=== PATIENT | female | born 1960 | race Caucasian/White ===

== ENCOUNTER 2017-02-10 08:18 | Day surgery (SDC) | payer BC ==
--- NOTE | 2017-02-03 10:30 | HP ---
DATE OF ADMISSION: 02/10/2017 CHIEF COMPLAINT: Renal failure. HISTORY OF PRESENT ILLNESS: The patient is a 56-year-old female with a history of diabetes and progressive renal failure. She is at the point where she is going to require dialysis. She has investigated both hemodialysis and peritoneal dialysis and is requesting peritoneal dialysis at this time. The patient has not had a significant abdominal surgery history. No known hernias. PAST MEDICAL HISTORY: Hypertension, diabetes, obesity, gout. PAST SURGICAL HISTORY: , right foot. MEDICATIONS: 1. Rocaltrol. 2. Drisdol. 3. Nifedical. 4. Lasix. 5. Hydralazine. 6. Carvedilol. 7. Insulin. 8. Allopurinol. ALLERGIES: LISINOPRIL, NOVOCAIN, METFORMIN. PHYSICAL EXAMINATION: GENERAL: Well-developed, well-nourished slightly obese female in no distress. HEENT: Normocephalic. Sclerae anicteric. ABDOMEN: Soft, nontender, nondistended. No palpable hernias. IMPRESSION: A 36-year-old female with renal failure. PLAN: Will proceed with peritoneal dialysis catheter insertion on 02/10/2017. We discussed the risks of bleeding, infection, bowel injury, catheter malfunction, and anesthesia-related complications. The patient understands and wishes to proceed.
[~2017-02-10 08:18] MED LIST: HEPARIN SODIUM,PORCINE 5,000 UNIT/ML 1 ML VIAL SQ ONE
[2017-02-10] MEDS ORDERED: SCOPOLAMINE 1.5MG/72HR PATCH TRANSDERM ONE (08:37)
[2017-02-10] MEDS ORDERED: HYDROmorphone 1 MG/ML 1 ML SYRINGE IVP PRN (08:37)
[2017-02-10] MEDS ORDERED: ONDANSETRON 4 MG/2 ML VIAL IVP ONE (08:37)
[2017-02-10] MEDS ORDERED: MIDAZOLAM 2 MG/2 ML VIAL IV PRN (08:37)
[2017-02-10] MEDS ORDERED: DEXAMETHASONE SOD PHOSPHATE 10 MG/ML 1 ML VIAL IV ONE (08:37)
[2017-02-10] MEDS ORDERED: ceFAZolin 2 GM in SODIUM CHLORIDE 0.9% 100 ML IVPB STA (08:50)
[2017-02-10] MEDS: LACTATED RINGERS 1,000 ML IV SCH ×2 (08:58→08:59)
[2017-02-10] MEDS ORDERED: SODIUM CHLORIDE 0.9% 1,000 ML IV ONE (08:59)
[2017-02-10 09:02] LABS: Glucose,Whole Blood 101 mg/dL (75-99)
[2017-02-10 09:06] LABS: Basophils # (A) 0.1 k/uL (0-0.2); Basophils % (A) 1 %; CH 30.3; Eosinophils # (A) 0.6 k/uL (0-0.7); Eosinophils % (A) 7 %; HCT 29.5 % (34.0-46.0); HDW 2.85; HGB 9.3 gm/dL (11.4-16.0); Luc # (Auto) 0.16; Luc % (Auto) 2; Lymphocytes # (A) 0.9 k/uL (1.0-4.8); Lymphocytes % (A) 10 %; MCH 29.2 pg (25.0-35.0); MCHC 31.6 g/dL (31.0-37.0); MCV 92.4 fL (80.0-100.0); Mean Platelet Volume 7.8; Monocytes # (A) 0.5 k/uL (0-1.0); Monocytes % (A) 5 %; Neutrophils # (A) 6.5 k/uL (1.3-7.7); Neutrophils % (A) 75 %; RBC 3.19 m/uL (3.80-5.40); RDW 13.8 % (11.5-15.5); WBC 8.7 k/uL (3.8-10.6); WBC (Perox) 9.35
[2017-02-10 09:16] LABS: Calcium 8.8 mg/dL (8.4-10.2); Potassium 5.9 mmol/L (3.5-5.1)
[2017-02-10] MEDS ORDERED: LIDOCAINE 1% INJ 10MG/ML (20 ML MDV) ONE (09:39)
[2017-02-10] MEDS ORDERED: PROPOFOL 10 MG/ML 20 ML VIAL IV ONE (09:39)
[2017-02-10] MEDS ORDERED: fentaNYL (PF) 50 MCG/ML 2 ML AMP ONE (09:39)
[2017-02-10] MEDS ORDERED: MIDAZOLAM 2 MG/2 ML VIAL ONE (09:39)
[2017-02-10] MEDS ORDERED: MINERAL OIL 1 APPLIC/ML OIL TOPICAL ONE (10:00)
[2017-02-10] MEDS ORDERED: BUPIVACAIN-EPI 0.25%-1:200,000 30 ML VIAL SQ ONE ×2 (10:00)
[2017-02-10] MEDS ORDERED: NALOXONE 0.4 MG/ML 1 ML VIAL IV PRN ×2 (10:20→10:21)
[2017-02-10] MEDS ORDERED: HYDROcodone/APAP 5-325MG 1 EACH TAB PO PRN (10:21)
--- NOTE | 2017-02-10 10:23 | P.PCN ---
Date of Procedure: 02/10/17 Procedure(s) Performed: PREOPERATIVE DIAGNOSIS: Renal failure POSTOPERATIVE DIAGNOSIS: Same PROCEDURE: Peritoneal dialysis catheter insertion SURGEON: Emmanuel EBL: Minimal ANESTHESIA: Sedation plus local COMPLICATIONS: None OPERATIVE PROCEDURE: The patient was placed in the operative table in the supine position. Her abdomen was prepped and draped in usual sterile fashion. A small vertical incision was made in the left periumbilical location. Dissection down through the subcutaneous tissues took place using electrocautery. The anterior rectus was divided vertically using the scalpel. The rectus was bluntly. The posterior rectus was visualized. An 0 Vicryl pursestring was placed. A small opening in the posterior rectus fascia and peritoneum took place using a Metzenbaum scissors. There were no adhesions to the suture that was placed. The pigtail catheter was advanced into the pelvis over a stylette. No resistance was met. The inner cuff was secured to the fascia using the 0 Vicryl pursestring that was placed. The catheter was tunneled to an exit site in the right lateral lower quadrant. The catheter was connected to the 1 L bag of saline and approximated 800 mL of saline was easily introduced into the peritoneal cavity. The fluid was then allowed to evacuate. The majority of the fluid was returned. The anterior rectus fascia was then reapproximated using a running 0 Vicryl stitch. The subcutaneous tissues reprepped using 3-0 Vicryl sutures and the skin using 4-0 Monocryl sutures. The outpatient dialysis adapter was applied to the end of the catheter. A sterile dressings then applied after Steri-Strips were placed over the incision. DISPOSITION: Stable to recovery room
[2017-02-10 10:43] VITALS: TEMP 96.6
[2017-02-10 10:59] LABS: Glucose,Whole Blood 112 mg/dL (75-99)
[2017-02-10] MEDS ORDERED: HYDROcodone/APAP 5-325MG 1 EACH TAB PO ONE (11:21)
[2017-02-10 11:23] VITALS: RESP 16
[2017-02-10 12:23] VITALS: BP 160/84; PULSE 66
== END 2017-02-10 12:53 | disposition home or self-care (01) ==
LOC: OR 08:18
PROVIDERS: ATTEND Surgery
DX: E11.22 Type 2 diabetes mellitus with diabetic chronic kidney disease (principal); I12.0 Hypertensive chronic kidney disease with stage 5 chronic kidney disease or end stage renal disease; N18.6 End stage renal disease; E78.5 Hyperlipidemia, unspecified; G47.33 Obstructive sleep apnea (adult) (pediatric); M10.9 Gout, unspecified; E66.9 Obesity, unspecified; Z86.718 Personal history of other venous thrombosis and embolism; Z79.4 Long term (current) use of insulin; Z79.84 Long term (current) use of oral hypoglycemic drugs; Z88.8 Allergy status to other drugs, medicaments and biological substances; Z88.4 Allergy status to anesthetic agent
CPT/HCPCS: 80048; 85025; 49421; C1752; J2250; J1644; J1100; J0690; J2405; J2001; J3010; J2704

== ENCOUNTER → 2017-08-24 | Outpatient (CLI) | payer BC ==
[~2017-08-24] MED LIST changes: -HEPARIN SODIUM,PORCINE 5,000 UNIT/ML 1 ML VIAL SQ ONE; +REGADENOSON 0.4 MG/5 ML SYRINGE IV ONE
--- NOTE | 2017-08-24 12:32 | EST ---
EXERCISE STRESS DATE OF SERVICE: 08/24/17 AGE: 57 SEX: Female HT: 5 feet 6 inches WT: 250 pounds PROTOCOL: STAGE: DURATION OF EXERCISE: HEART RATE REST: 70 BLOOD PRESSURE REST: 171/84 MAXIMUM HEART RATE ACHIEVED: 73 MAXIMUM BLOOD PRESSURE: 171/84 85% MPHR: 138 100% MPHR: 162 METS: INDICATIONS: Chest pain. CLINICAL INFORMATION: Chest pain. RESULTS: Baseline EKG shows sinus rhythm, normal axis. Normal intervals. The patient Lexiscan protocol. The patient did not have chest pain or diagnostic ST segment depression. CONCLUSION: 1. Negative stress test by EKG criteria. 2. Cardiolite portion of the stress test will be reported separately. MMODL / IJN: [id number] /
--- NOTE | 2017-08-24 14:08 | NM ---
EXAMINATION TYPE: NM stress lexiscan cardiolite DATE OF EXAM: 08/24/2017 COMPARISON: Previous nuclear medicine myocardial SPECT 01/13/2015 HISTORY: End-stage renal disease TECHNIQUE: After the intravenous administration of 10.9 mCi Tc 99m Sestamibi - Cardiolite resting SP ECT images acquired 45 minutes post injection. The patient received 0.4mg Lexiscan, 27.6 mCi Tc 99m Sestamibi - Stress images obtained [address] injection FINDINGS: Review of stress and rest SPECT images demonstrates no distinct perfusion abnormality. Gated analysi s shows paradoxical apical wall motion with an estimated left ventricular ejection fraction of 41 %. IMPRESSION: No scintigraphic evidence for reversible ischemia. There is a change from previous exam, ejection fra ction is 41% compared to prior of 67%, consider echocardiographic correlation. Suggestion of paradoxi wade wall motion.
== END ==
LOC: RADNMMAIN 09:01
PROVIDERS: ATTEND Family Medicine
DX: N18.6 End stage renal disease (principal); R10.2 Pelvic and perineal pain
CPT/HCPCS: 93017; 78452; A9500; J2785

== ENCOUNTER → 2017-08-29 | Outpatient (CLI) | payer BC ==
--- NOTE | 2017-08-29 14:48 | US ---
EXAMINATION TYPE: US pelvis complete transvag DATE OF EXAM: 08/29/2017 COMPARISON: US 01/2016 CLINICAL HISTORY: Female pelvic pain R10.2. Patient states she is on the renal transplant list. Extr spencer difficult and limited exam TECHNIQUE: Transvaginal (TV) and Transabdominal (TA) Date of LMP: 10-15 years ago EXAM MEASUREMENTS: Uterus: 8.5 x 2.7 x 3.6 cm Endometrial Stripe: 0.4 cm Right Ovary: 2.3 x 1.2 x 2.3 cm Left Ovary: Not visualized on this exam 1. Uterus: Anteverted Nabothian cysts visualized in cervix 2. Endometrium: wnl as visualized 3. Right Ovary: wnl as visualized 4. Left Ovary: Not visualized on this exam 5. Bilateral Adnexa: Moderate amount of fluid visualized within the pelvis 6. Posterior cul-de-sac: Moderate amount of fluid visualized IMPRESSION: 1. Unremarkable uterus and endometrial thickness. 2. Probable complex cervical nabothian cyst. 3. Moderate volume simple appearing free fluid within the pelvis likely related to the patient's know n renal failure. 4. Nonvisualization of the left ovary.
== END ==
LOC: RADUSWWP 13:45
PROVIDERS: ATTEND Family Medicine
DX: R10.2 Pelvic and perineal pain (principal)
CPT/HCPCS: 76830; 76856

== ENCOUNTER → 2017-10-02 | Outpatient (CLI) | payer BC ==
--- NOTE | 2017-10-03 11:12 | ECHOF ---
Referral Reason:Low Ejection Fraction I50.9 MEASUREMENTS -------- HEIGHT: 167.6 cm WEIGHT: 113.4 kg BP: 17/79 RVIDd: 3.2 cm (< 3.3) IVSd: 1.3 cm (0.6 - 1.1) LVIDd: 4.6 cm (3.9 - 5.3) LVPWd: 1.2 cm (0.6 - 1.1) IVSs: 1.7 cm LVIDs: 3.1 cm LVPWs: 1.8 cm LAESV Index (A-L): 13.39 ml/m Ao Diam: 3.1 cm (2.0 - 3.7) AV Cusp: 1.6 cm (1.5 - 2.6) LA Diam: 3.8 cm (2.7 - 3.8) MV E Sharad: 0.89 m/s MV DecT: 309 ms MV A Sharad: 1.05 m/s MV E/A Ratio: 0.84 AV maxP.70 mmHg AV meanP.43 mmHg RAP: 5.00 mmHg RVSP: 7.99 mmHg FINDINGS -------- Sinus rhythm. This was a technically adequate study. The left ventricular size is normal. There is mild concentric left ventricular hypertrophy. Overa ll left ventricular systolic function is normal with, an EF between 55 - 60 %. The right ventricle is normal in size. Normal LA size by volume 22+/-6 ml/m2. The right atrium is normal in size. Aortic valve is trileaflet and is mildly thickened. There is no evidence of aortic regurgitation. Mild aortic stenosis with peak/mean pressure gradient of 25.70mmHg / 15.43mmHg , the aortic valve ar ea by continuity equation is 1.9cm. The mitral valve leaflets are mildly thickened. There is trace to mild mitral regurgitation. Trace tricuspid regurgitation present. Right ventricular systolic pressure is normal at < 35 mmHg. There is no evidence of pulmonary hypertension. The pulmonic valve was not well visualized. The aortic root size is normal. Normal inferior vena cava with normal inspiratory collapse consistent with estimated right atrial pre ssure of 5 mmHg. The pericardium is normal. There is no pericardial effusion. CONCLUSIONS -------- 1. Sinus rhythm. 2. This was a technically adequate study. 3. The left ventricular size is normal. 4. There is mild concentric left ventricular hypertrophy. 5. Overall left ventricular systolic function is normal with, an EF between 55 - 60 %. 6. Normal LA size by volume 22+/-6 ml/m2. 7. Aortic valve is trileaflet and is mildly thickened. 8. Mild aortic stenosis with peak/mean pressure gradient of 25.70mmHg / 15.43mmHg , the aortic valve area by continuity equation is 1.9cm. 9. The mitral valve leaflets are mildly thickened. 10. There is trace to mild mitral regurgitation. 11. Trace tricuspid regurgitation present. 12. Right ventricular systolic pressure is normal at < 35 mmHg. 13. There is no evidence of pulmonary hypertension. 14. The pulmonic valve was not well visualized. 15. The aortic root size is normal. 16. There is no pericardial effusion. LATHE SET UP OPERATOR: Gaurang Yanez RDCS
== END | disposition home or self-care (01) ==
LOC: RADECHMAIN 15:29
PROVIDERS: ATTEND Family Medicine
DX: I08.3 Combined rheumatic disorders of mitral, aortic and tricuspid valves (principal); I51.7 Cardiomegaly
CPT/HCPCS: 93306

== ENCOUNTER → 2017-12-27 | Outpatient (CLI) | payer BC ==
--- NOTE | 2018-01-01 09:39 | MM ---
Reason for exam: screening (asymptomatic). History: Benign excisional biopsy of the right breast. Physical Findings: A clinical breast exam by your physician is recommended on an annual basis and results should be correlated with mammographic findings. MG Screening Mammo w CAD Bilateral CC and MLO view(s) were taken. No prior studies available for comparison. There are scattered fibroglandular densities. Finding: There are typically benign coarse heterogeneous, grouped/clustered calcifications in the 12 o'clock middle position of the left breast. ASSESSMENT: Incomplete: need additional imaging evaluation, BI-RAD 0 RECOMMENDATION: Special view mammogram of the left breast. [facility] will attempt to contact patient to return for supplemental views.
== END | disposition home or self-care (01) ==
LOC: RADMAMWWP 11:13
PROVIDERS: ATTEND Family Medicine
DX: Z12.31 Encounter for screening mammogram for malignant neoplasm of breast (principal)
CPT/HCPCS: 77067

== ENCOUNTER → 2018-01-03 | Outpatient (CLI) | payer BC ==
--- NOTE | 2018-01-04 08:09 | MM ---
Reason for exam: additional evaluation requested from abnormal screening. Last mammogram was performed less than 1 month ago. History: Patient is postmenopausal. Benign excisional biopsy of the right breast. Physical Findings: Nurse did not find any significant physical abnormalities on exam. MG Work Up Mamm w CAD LT Spot compression CC and LM view(s) were taken of the left breast. Prior study comparison: December 27, 2017, bilateral MG screening mammo w CAD. There are scattered fibroglandular densities. Finding: There are typically benign round, grouped/clustered calcifications in the outer quadrant, middle position of the left breast on additional views. These results were verbally communicated with the patient and result sheet given to the patient on 01/03/18. ASSESSMENT: Benign, BI-RAD 2 RECOMMENDATION: Return to routine screening mammogram schedule for both breasts.
== END | disposition home or self-care (01) ==
LOC: RADMAMWWP 13:59
PROVIDERS: ATTEND Family Medicine
DX: R92.8 Other abnormal and inconclusive findings on diagnostic imaging of breast (principal)
CPT/HCPCS: 77065

== ENCOUNTER 2018-02-06 23:05 | Inpatient (IN) | payer BC ==
[2018-02-07] MEDS ORDERED: MORPHINE SULFATE/PF 10MG/10ML VL IV STA (00:06)
[2018-02-07] MEDS ORDERED: PANTOPRAZOLE 40 MG/10 ML VIAL IVP STA (00:06)
--- NOTE | 2018-02-07 00:12 | ED ---
General Adult HPI - General Chief complaint: Abdominal Pain Stated complaint: Abdominal pain Time Seen by Provider: 02/06/18 23:51 Source: patient, RN notes reviewed Mode of arrival: ambulatory Limitations: no limitations - History of Present Illness Initial comments: Patient is a pleasant 57-year-old female presenting to the emergency Department with abdominal discomfort. Symptoms have been present for the past 4 days. Patient did have a couple of episodes of diarrhea prior to discomfort. No diarrhea since that time. No nausea vomiting. No fevers. Discomfort is more the upper abdomen, across the abdomen. There may be some radiation towards the right back. No dysuria or hematuria. No history of similar symptoms previously. Patient has not been sleeping well. Patient feels bloated. - Related Data Home Medications Medication Instructions Recorded Confirmed NIFEdipine XL [Procardia XL] 60 mg PO QAM 04/24/14 02/10/17 Allopurinol [Allopurinol] 100 mg PO DAILY 01/22/15 02/10/17 Calcitriol [Calcitriol] 0.25 mcg PO SUTH 01/22/15 02/10/17 Carvedilol [Carvedilol] 25 mg PO BID 01/22/15 02/10/17 Furosemide [Furosemide] 40 mg PO QAM 01/22/15 02/10/17 hydrALAZINE HCL [Apresoline] 25 mg PO BID 01/22/15 02/10/17 Calcium Carbonate [Calcium] 600 mg PO DAILY 05/06/15 02/10/17 Insulin Degludec [Tresiba 50 unit SQ DAILY 02/10/17 02/10/17 Flextouch U-100] Previous Rx's Medication Instructions Recorded Hydrocodone/Acetaminophen [[place] 1 - 2 each PO Q4HR PRN #30 tab 02/10/17 5-325] Allergies Allergy/AdvReac Type Severity Reaction Status Date / Time lisinopril Allergy Rash/Hives Verified 02/06/18 23:29 metformin AdvReac Diarrhea Verified 02/06/18 23:29 NOVACAINE Allergy Intermediate Anaphylaxis Uncoded 02/06/18 23:29 Review of Systems ROS Statement: Those systems with pertinent positive or pertinent negative responses have been documented in the HPI. ROS Other: All systems not noted in ROS Statement are negative. Constitutional: Denies: fever Eyes: Denies: eye pain ENT: Denies: ear pain Respiratory: Denies: cough Cardiovascular: Denies: chest pain Endocrine: Denies: fatigue Gastrointestinal: Reports: abdominal pain. Denies: nausea, vomiting Genitourinary: Denies: dysuria, hematuria Musculoskeletal: Denies: arthralgia Skin: Denies: rash Neurological: Denies: weakness Past Medical History Past Medical History: Diabetes Mellitus, Deep Vein Thrombosis (DVT), Hyperlipidemia, Hypertension, Renal Disease, Respiratory Disorder, Sleep Apnea/ CPAP/BIPAP Additional Past Medical History / Comment(s): MVP, CALLOUSE RT GREAT TOE History of Any Multi-Drug Resistant Organisms: None Reported Past Surgical History: Section, Orthopedic Surgery Additional Past Surgical History / Comment(s): right foot BROKEN HAS METAL IN PLACE, EAR SX CHILD FOR INFECTION, JESUS CATARACTS Past Anesthesia/Blood Transfusion Reactions: Previous Problems w/ Anesthesia Additional Past Anesthesia/Blood Transfusion Reaction / Comment(s): W/ NOVACAINE - HAS THROAT SWELLING Past Psychological History: Depression Smoking Status: Never smoker General Exam Limitations: no limitations General appearance: alert, in no apparent distress Head exam: Present: atraumatic Eye exam: Present: normal appearance, PERRL ENT exam: Present: normal oropharynx Neck exam: Present: normal inspection Respiratory exam: Present: normal lung sounds bilaterally Cardiovascular Exam: Present: regular rate, normal rhythm Expanded Peripheral pulses: 2+: Posterior Tibialis (R), Posterior Tibialis (L), Dorsalis Pedis (R), Dorsalis Pedis (L) GI/Abdominal exam: Present: soft, tenderness (Mild tenderness diffuse abdomen), hypoactive bowel sounds. Absent: distended, guarding, rebound, rigid, pulsatile mass Extremities exam: Present: normal inspection Back exam: Present: normal inspection Neurological exam: Present: alert Psychiatric exam: Present: normal affect, normal mood Skin exam: Present: normal color Course Vital Signs 02/06/18 02/07/18 23:23 01:27 Temperature 98.6 F Pulse Rate 77 Respiratory 16 Rate Blood Pressure 226/106 180/90 O2 Sat by Pulse 98 Oximetry Medical Decision Making - Medical Decision Making Patient reevaluated and resting comfortably in bed. Patient and family updated on results and plan. Case was discussed in detail with Dr. Lopez, who will admit his patient. Elevation of troponin is unclear at this time. Patient will have repeat testing and cardiac evaluation. Patient has had no complaints of chest discomfort. Further analysis on peritoneal fluid is still pending. - Lab Data Result diagrams: 02/07/18 01:20 02/07/18 01:20 Lab Results 02/07/18 02/07/18 02/07/18 Range/Units 01:16 01:20 01:20 WBC (3.8-10.6) k/uL RBC (3.80-5.40) m/uL Hgb (11.4-16.0) gm/dL Hct (34.0-46.0) % MCV (80.0-100.0) fL MCH (25.0-35.0) pg MCHC (31.0-37.0) g/dL RDW (11.5-15.5) % Plt Count (150-450) k/uL Neutrophils % % Lymphocytes % % Monocytes % % Eosinophils % % Basophils % % Neutrophils # (1.3-7.7) k/uL Lymphocytes # (1.0-4.8) k/uL Monocytes # (0-1.0) k/uL Eosinophils # (0-0.7) k/uL Basophils # (0-0.2) k/uL PT (9.0-12.0) sec INR (<1.2) APTT (22.0-30.0) sec Sodium 141 (137-145) mmol/L Potassium 4.7 (3.5-5.1) mmol/L Chloride 103 (98-107) mmol/L Carbon Dioxide 22 (22-30) mmol/L Anion Gap 16 mmol/L BUN 53 H (7-17) mg/dL Creatinine 5.70 H* (0.52-1.04) mg/dL Est GFR (CKD-EPI)AfAm 9 (>60 ml/min/1.73 sqM) Est GFR (CKD-EPI)NonAf 8 (>60 ml/min/1.73 sqM) Glucose 249 H (74-99) mg/dL Calcium 9.8 (8.4-10.2) mg/dL Total Bilirubin 0.3 (0.2-1.3) mg/dL AST 21 (14-36) U/L ALT 22 (9-52) U/L Alkaline Phosphatase 159 H (38-126) U/L Total Creatine Kinase 113 (30-135) U/L CK-MB (CK-2) 2.3 (0.0-2.4) ng/mL CK-MB (CK-2) Rel Index 2.0 Troponin I 0.075 H* (0.000-0.034) ng/mL Total Protein 6.6 (6.3-8.2) g/dL Albumin 3.4 L (3.5-5.0) g/dL Amylase 53 (30-110) U/L Lipase 165 (23-300) U/L Urine Color Urine Appearance (Clear) Urine pH (5.0-8.0) Ur Specific Catarina (1.001-1.035) Urine Protein (Negative) Urine Glucose (UA) (Negative) Urine Ketones (Negative) Urine Blood (Negative) Urine Nitrite (Negative) Urine Bilirubin (Negative) Urine Urobilinogen (<2.0) mg/dL Ur Leukocyte Esterase (Negative) Urine RBC (0-5) /hpf Urine WBC (0-5) /hpf Ur Squamous Epith Cells (0-4) /hpf Urine Bacteria (None) /hpf Fluid Source Dialysate Fluid Color Yellow Fluid Appearance Clear Fluid RBC 3 /uL Fluid Nucleated Cells 15 /uL Fluid Polynuclear WBCs 55 % Fluid Mononuclear WBCs 27 % Fluid Eosinophils 18 % 02/07/18 02/07/18 02/07/18 Range/Units 01:20 01:20 01:20 WBC 10.7 H (3.8-10.6) k/uL RBC 4.01 (3.80-5.40) m/uL Hgb 12.2 (11.4-16.0) gm/dL Hct 35.8 (34.0-46.0) % MCV 89.1 (80.0-100.0) fL MCH 30.4 (25.0-35.0) pg MCHC 34.2 (31.0-37.0) g/dL RDW 12.5 (11.5-15.5) % Plt Count 304 (150-450) k/uL Neutrophils % 78 % Lymphocytes % 12 % Monocytes % 5 % Eosinophils % 3 % Basophils % 1 % Neutrophils # 8.3 H (1.3-7.7) k/uL Lymphocytes # 1.2 (1.0-4.8) k/uL Monocytes # 0.6 (0-1.0) k/uL Eosinophils # 0.3 (0-0.7) k/uL Basophils # 0.1 (0-0.2) k/uL PT 10.5 (9.0-12.0) sec INR 1.1 (<1.2) APTT 22.4 (22.0-30.0) sec Sodium (137-145) mmol/L Potassium (3.5-5.1) mmol/L Chloride (98-107) mmol/L Carbon Dioxide (22-30) mmol/L Anion Gap mmol/L BUN (7-17) mg/dL Creatinine (0.52-1.04) mg/dL Est GFR (CKD-EPI)AfAm (>60 ml/min/1.73 sqM) Est GFR (CKD-EPI)NonAf (>60 ml/min/1.73 sqM) Glucose (74-99) mg/dL Calcium (8.4-10.2) mg/dL Total Bilirubin (0.2-1.3) mg/dL AST (14-36) U/L ALT (9-52) U/L Alkaline Phosphatase (38-126) U/L Total Creatine Kinase (30-135) U/L CK-MB (CK-2) (0.0-2.4) ng/mL CK-MB (CK-2) Rel Index Troponin I (0.000-0.034) ng/mL Total Protein (6.3-8.2) g/dL Albumin (3.5-5.0) g/dL Amylase (30-110) U/L Lipase (23-300) U/L Urine Color Light Yellow Urine Appearance Cloudy H (Clear) Urine pH 7.0 (5.0-8.0) Ur Specific Catarina 1.010 (1.001-1.035) Urine Protein 3+ H (Negative) Urine Glucose (UA) 3+ H (Negative) Urine Ketones Negative (Negative) Urine Blood Small H (Negative) Urine Nitrite Negative (Negative) Urine Bilirubin Negative (Negative) Urine Urobilinogen <2.0 (<2.0) mg/dL Ur Leukocyte Esterase Moderate H (Negative) Urine RBC 2 (0-5) /hpf Urine WBC 50 H (0-5) /hpf Ur Squamous Epith Cells 2 (0-4) /hpf Urine Bacteria Rare H (None) /hpf Fluid Source Fluid Color Fluid Appearance Fluid RBC /uL Fluid Nucleated Cells /uL Fluid Polynuclear WBCs % Fluid Mononuclear WBCs % Fluid Eosinophils % - Radiology Data Radiology results: report reviewed (Computed tomography scan of the abdomen and pelvis shows no acute abnormality.) Disposition Clinical Impression: Abdominal pain Disposition: ADMITTED IP TO THIS HOSP Referrals: Sam Lopez MD [Primary Care Provider] - 1-2 days Decision Time: 02:35
[2018-02-07 01:33] LABS: Basophils # (A) 0.1 k/uL (0-0.2); Basophils % (A) 1 %; Eosinophils # (A) 0.3 k/uL (0-0.7); Eosinophils % (A) 3 %; HCT 35.8 % (34.0-46.0); HGB 12.2 gm/dL (11.4-16.0); Lymphocytes # (A) 1.2 k/uL (1.0-4.8); Lymphocytes % (A) 12 %; MCH 30.4 pg (25.0-35.0); MCHC 34.2 g/dL (31.0-37.0); MCV 89.1 fL (80.0-100.0); Mean Platelet Volume 6.7; Monocytes # (A) 0.6 k/uL (0-1.0); Monocytes % (A) 5 %; Neutrophils # (A) 8.3 k/uL (1.3-7.7); Neutrophils % (A) 78 %; Platelet Count 304 k/uL (150-450); RBC 4.01 m/uL (3.80-5.40); RDW 12.5 % (11.5-15.5); WBC 10.7 k/uL (3.8-10.6)
--- NOTE | 2018-02-07 01:35 | CT ---
EXAMINATION TYPE: CT abdomen pelvis wo con DATE OF EXAM: 02/07/2018 COMPARISON: NONE HISTORY: Mid abd pain CT DLP: 1333.10 mGycm Automated exposure control for dose reduction was used. TECHNIQUE: Helical acquisition of images was performed from the lung bases through the pelvis. FINDINGS: Lung bases are clear of consolidation. There is no pleural effusion. There is no pericardial effusion . Liver shows no focal defect. There is atherosclerotic vascular calcification. Spleen appears normal. There is no pancreatic mass. Gallbladder appears normal. There are cysts scattered renal vascular calcifications. There is no hydronephrosis. There is no evid ence of a renal mass. There is no retroperitoneal adenopathy. I see no intestinal wall thickening. Th ere are no dilated loops. Appendix is not definitely seen. There is no sign of appendicitis. There is a 3.5 cm fat density mass associated with the cecum. This is consistent with a simple lipoma. Bladde r distends smoothly. There is no pelvic mass. There is a small amount of free fluid in the cul-de-sac . I see no bony destructive process. There is a small amount of air in the urinary bladder consistent with catheterization. There is a catheter in the anterior pelvis. This is consistent with peritoneal dialysis. IMPRESSION: FAT DENSITY MASS ASSOCIATED WITH THE CECUM CONSISTENT WITH A LIPOMA. NO SIGN OF ACUTE ABDOMEN AND PEL VIS. PERITONEAL DIALYSIS CATHETER NOTED. MINIMAL AIR IN THE URINARY BLADDER CONSISTENT WITH CATHETERI ZATION. ATHEROSCLEROTIC VASCULAR CALCIFICATION. MILD RENAL ATROPHY.
[2018-02-07 01:39] LABS: Appearance,BF Clear; Color,BF Yellow
[2018-02-07 01:41] LABS: Appearance,Urine Cloudy (Clear); Bacteria,Urine Rare /hpf; Bilirubin,Urine Negative (Negative); Blood,Urine Small (Negative); Color,Urine Light Yellow; Glucose,Urine (UA) 3+ (Negative); Ketones,Urine Negative (Negative); Leukocyte Esterase,Urine Moderate (Negative); Nitrite,Urine Negative (Negative); Protein,Urine 3+ (Negative); RBC,Urine 2 /hpf (0-5); Squamous Epithelial Cell,Urine 2 /hpf (0-4); Urobilinogen,Urine <2.0 mg/dL (<2.0); WBC,Urine 50 /hpf (0-5)
[2018-02-07 01:42] LABS: INR 1.1 (<1.2); Partial Thromboplastin Time 22.4 sec (22.0-30.0); Prothrombin Time 10.5 sec (9.0-12.0)
[2018-02-07 01:43] LABS: Albumin 3.4 g/dL (3.5-5.0); Calcium 9.8 mg/dL (8.4-10.2); Potassium 4.7 mmol/L (3.5-5.1); Total Bilirubin 0.3 mg/dL (0.2-1.3); Total Protein 6.6 g/dL (6.3-8.2)
[2018-02-07 02:07] LABS: Nucleated Cells, Body Fluid 15 /uL; RBC, Body Fluid 3 /uL
[2018-02-07 02:07] LABS: Creatine Kinase MB 2.3 ng/mL (0.0-2.4)
[2018-02-07 02:10] LABS: Troponin I 0.075 ng/mL (0.000-0.034)
[2018-02-07 02:23] LABS: Mononuclear WBC,Body Fluid 27 %; Polynuclear WBC,Body Fluid 55 %; Total Cells Counted,Body Fluid 11
[2018-02-07] MEDS ORDERED: MORPHINE SULFATE/PF 10MG/10ML VL IV PRN (02:36)
[2018-02-07] MEDS ORDERED: NALOXONE 0.4 MG/ML 1 ML VIAL IV PRN (02:36)
[2018-02-07] MEDS ORDERED: ASPIRIN 81 MG PO STA (02:37)
[2018-02-07] MEDS ORDERED: cefTRIAXone IN SWFI 1,000 MG/10 ML SYRINGE IVP STA (02:38)
[2018-02-07] MEDS: NITROGLYCERIN OINT 1 INCH/GM PACKET TOPICAL SCH ×4 (06:46→23:46)
[2018-02-07] MEDS ORDERED: CARVEDILOL 12.5 MG TAB PO STA (06:47)
[2018-02-07] MEDS: CARVEDILOL 12.5 MG TAB PO SCH ×2 (06:59→09:28)
[2018-02-07 08:58] LABS: Creatine Kinase MB 2.1 ng/mL (0.0-2.4)
[2018-02-07 09:04] LABS: Troponin I 0.058 ng/mL (0.000-0.034)
[2018-02-07] MEDS: FUROSEMIDE 40 MG TAB PO SCH (09:27)
[2018-02-07] MEDS: PANTOPRAZOLE 40 MG/10 ML VIAL IV SCH (09:54)
[2018-02-07] MEDS: hydrALAZINE HCL 25 MG TAB PO SCH ×2 (09:56→21:17)
[2018-02-07] MEDS ORDERED: hydrALAZINE HCL 20 MG/ML 1 ML VIAL IVP PRN (10:29)
--- NOTE | 2018-02-07 11:26 | CONS ---
CONSULTATION CHIEF COMPLAINT: Elevated troponins. Ambreen is a 57-year-old lady with history of end-stage renal disease on peritoneal dialysis, hypertension, insulin-requiring diabetes, who presented to hospital primarily complaining of abdominal pain. It is associated with some episodes of diarrhea also. There is no history of nausea or vomiting. She describes it as a mild to moderate vague abdominal discomfort that radiates across her abdomen. It gets worse during dialysis. Patient underwent troponins. They came back slightly elevated and Cardiology had been consulted. Her troponins are at 0.07 and 0.05. These are probably related to the underlying end-stage renal disease. I do not have an EKG. I believe the troponin elevation is related to the renal failure and does not require further evaluation at this time. The abdominal pain clearly seems to be related to the peritoneal dialysis. PAST MEDICAL HISTORY: Significant for hypertension and diabetes. CURRENT MEDICATIONS: Include insulin, Prozac, Tylenol, Procardia XL 60 mg daily, carvedilol 25 b.i.d. Patient is allergic to IV DYE, LISINOPRIL, METFORMIN, and NOVOCAIN. FAMILY HISTORY: Negative for premature coronary artery disease. SOCIAL HISTORY: Negative for current smoking, EtOH abuse, or drug abuse. REVIEW OF SYSTEMS: HEENT is unremarkable. CARDIAC: As described above. RESPIRATORY: Negative. GI: Significant for abdominal pain. GENITOURINARY: Negative. ALLERGY/IMMUNOLOGY: Negative. MUSCULOSKELETAL: Significant for arthritis. PSYCHOSOCIAL: Negative. ENDOCRINE: Negative. DERM: Negative. CONSTITUTIONAL: Negative. ONCOLOGICAL: Negative. Rest of the system review is not relevant. PHYSICAL EXAM: Patient is afebrile. Heart rate is 68 beats per minute, blood pressure is 170/86, respiratory rate is 18. Chest exam reveals good air entry bilaterally. Heart exam reveals first and second heart sounds and ejection systolic murmur in the aortic area. Abdomen is soft. Exam of extremities did not reveal any edema. Peripheral pulses are felt. LABS: Show that the BUN is 53, creatinine is 5.7. Trope is elevated. Hemoglobin is 12.2, platelet count is 304. ASSESSMENT: 1. Uncontrolled hypertension. Patient will resume the Procardia and the Coreg that she is on and she has also been started on ampicillin and increase the dose as needed. 2. Troponin elevation secondary to the renal failure, does not require further evaluation. I will obtain a 2D echo to evaluate her LV function. 3. Abdominal pain workup as per Primary. 4. End-stage renal disease on peritoneal dialysis. MMODL / IJN: [id number] /
--- NOTE | 2018-02-07 11:28 | P.NPCON ---
History of Present Illness - Reason for Consult end stage renal disease - History of Present Illness Reason for consultation: End-stage renal disease History of present illness: Patient is a 57-year-old female seen in renal consultation for end-stage renal disease. She is maintained on peritoneal dialysis. Patient states she uses a cycler at night and also do some manual exchange during the day. She uses 1.5% solution. Patient states she developed abdominal pain about 3 days ago which has been intermittent in nature. She states her dialysate has been clear. She denies any fever or chills. Denies any nausea or vomiting. She did have diarrhea a few days ago but is now resolved. She did have an CAT scan of the abdomen and pelvis done this admission which did not reveal any acute inflammatory process. She is currently resting in bed. Denies chest pain or shortness of breath. Oral intake is fair. Hemodynamically she stable. Her dialysate was sent for analysis. Cultures are pending. Her polynuclear white cell counts were elevated at 55. Vital signs are stable. General: The patient appeared well nourished and normally developed. HEENT: Head exam is unremarkable. Neck is without jugular venous distension. LUNGS: Lungs are clear to auscultation and percussion. Breath sounds decreased. HEART: Rate and Rhythm are regular. First and second heart sounds normal. No murmurs, rubs or gallops. ABDOMEN: Abdominal exam reveals normal bowel sounds. Non-tender and non- distended. No evidence of peritonitis. EXTREMITITES: No clubbing, cyanosis, or edema. Past Medical History Past Medical History: Diabetes Mellitus, Deep Vein Thrombosis (DVT), Hyperlipidemia, Hypertension, Renal Disease, Respiratory Disorder, Sleep Apnea/ CPAP/BIPAP Additional Past Medical History / Comment(s): MVP, CALLOUSE RT GREAT TOE History of Any Multi-Drug Resistant Organisms: None Reported Past Surgical History: Section, Orthopedic Surgery Additional Past Surgical History / Comment(s): right foot BROKEN HAS METAL IN PLACE, EAR SX CHILD FOR INFECTION, JESUS CATARACTS Past Anesthesia/Blood Transfusion Reactions: Previous Problems w/ Anesthesia Additional Past Anesthesia/Blood Transfusion Reaction / Comment(s): W/ NOVACAINE - HAS THROAT SWELLING Past Psychological History: Depression Smoking Status: Never smoker Medications and Allergies Home Medications Medication Instructions Recorded Confirmed Type NIFEdipine XL [Procardia XL] 60 mg PO QAM 04/24/14 02/07/18 History Carvedilol [Carvedilol] 25 mg PO BID 01/22/15 02/07/18 History Calcium Carbonate [Calcium] 600 mg PO DAILY 05/06/15 02/07/18 History Insulin Degludec [Tresiba 90 unit SQ BID 02/10/17 02/07/18 History Flextouch U-100] Acetaminophen [Tylenol] 1,000 mg PO TID PRN 02/07/18 02/07/18 History Calcitriol 0.5 mcg PO MOTUWETHFR 02/07/18 02/07/18 History FLUoxetine HCL [PROzac] 20 mg PO DAILY 02/07/18 02/07/18 History Allergies Allergy/AdvReac Type Severity Reaction Status Date / Time Iodinated Contrast- Oral and Allergy Unknown Verified 02/07/18 07:37 IV Dye lisinopril Allergy Rash/Hives Verified 02/07/18 07:37 metformin AdvReac Diarrhea Verified 02/07/18 07:37 NOVACAINE Allergy Intermediate Anaphylaxis Uncoded 02/06/18 23:29 Physical Exam Vitals: Vital Signs Temp Pulse Resp BP Pulse Ox 02/07/18 09:58 68 20 204/88 99 02/07/18 07:34 97.5 F L 68 20 170/86 97 02/07/18 06:38 220/124 02/07/18 06:10 68 15 100 02/07/18 01:27 180/90 02/06/18 23:23 98.6 F 77 16 226/106 98 Intake and Output 02/06/18 02/07/18 02/07/18 22:59 06:59 14:59 Other: Weight 118.841 kg Results - Lab Results Most recent lab results Calcium 9.8 mg/dL (8.4-10.2) 02/07/18 01:20 02/07/18 01:20 02/07/18 01:20 Assessment and Plan Plan: Assessment: #1. End-stage renal disease maintained on peritoneal dialysis. #2. Abdominal pain with elevated PMNs. There is concern for peritonitis. #3. Hypertension with chronic kidney disease. Blood pressures high on admission. #4. Insulin-dependent diabetes mellitus. #5. Chronic kidney disease mineral bone disease. #6. Pyuria with moderate leukocyte esterase on UA. Concern for UTI. She did receive a dose of Rocephin. Plan: 2 L exchanges every 6 hours with 1.5% solution while in the hospital. I will give her intraperitoneal dose of vancomycin and Fortaz today. Repeat dialysate cell count, culture and Gram stain tomorrow. Home antihypertensives have been resumed. I will add hydralazine 10 mg every 4 hours as needed for systolic blood pressure greater than 160. Check phosphorus level. Follow-up cultures. Thank you for the consultation. I will continue to follow the patient with you during her hospital stay.
[2018-02-07] MEDS ORDERED: VANCOMYCIN INTRAPERIT ONE (12:00)
[2018-02-07] MEDS ORDERED: DIALYSIS DEX INTRAPERIT ONE (12:00)
[2018-02-07] MEDS ORDERED: CEFTAZIDIME INTRAPERIT ONE (12:00)
[2018-02-07 14:05] LABS: Creatine Kinase MB 2.2 ng/mL (0.0-2.4)
[2018-02-07 14:28] LABS: Troponin I 0.047 ng/mL (0.000-0.034)
[2018-02-07] MEDS ORDERED: MORPHINE ORAL SOLN 10 MG/5 ML CUP PO PRN (15:00)
--- NOTE | 2018-02-07 15:17 | HP ---
HISTORY AND PHYSICAL CHIEF COMPLAINT: 57-year-old white female, end-stage renal disease, peritoneal dialysis, hypertension, insulin-dependent diabetes mellitus, complaining of vague abdominal pain. She has some diarrhea. No nausea, vomiting, [id number] abdominal pain across her abdomen. It got worse during dialysis. She had elevated troponins for which Cardiology was consulted probably related to underlying renal disease. She is admitted for abdominal pain and rule out [place]. PAST MEDICAL HISTORY: Is on transplant list. She has insulin-dependent diabetes mellitus, end-stage renal disease, hypertension, obesity, depression. MEDICATIONS: She is on insulin, Prozac, Tylenol, Procardia XL, carvedilol. ALLERGIES: IV DYE AND LISINOPRIL METFORMIN, NOVOCAIN. FAMILY HISTORY: Negative for coronary disease. SOCIAL HISTORY: Negative for smoking. No alcohol or drug abuse. REVIEW OF SYSTEM: Fourteen point review of systems negative except for mentioned in HPI. PHYSICAL EXAMINATION: Blood pressures are high 150s to 170s over 80s. Respiratory rate 12-14, pulse is in the 60s. CHEST: Clear S1, S2 without any murmurs, rubs or gallops. ABDOMEN: Soft. EXTREMITIES: No cyanosis, clubbing, edema. Peripheral pulses are normal. LABORATORY DATA: BUN 53, creatinine 5.7. Troponins elevated. Hemoglobin 12.2. ASSESSMENT: 1. Uncontrolled hypertension, elevated troponin secondary to renal disease, rule out myocardial infarction. 2. Abdominal pain with possible gastroparesis, end-stage renal disease. 3. Insulin-dependent diabetes mellitus. 4. Obesity. 5. Depression. Continue home medications. Await consultation with Gastroenterology and Nephrology and Cardiology. We will await for Gastroenterology recommendations as well as Nephrology recommendations. Possible discharge home if cleared if [place] is ruled out and everybody clears for discharge. Check CT scan of the abdomen and pelvis. MMODL / IJN: [id number] /
[2018-02-07] MEDS: cefTRIAXone IN SWFI 1,000 MG/10 ML SYRINGE IVP SCH (16:17)
[2018-02-07] MEDS: CALCITRIOL 0.25 MCG CAP PO SCH (16:18)
[2018-02-07] MEDS: SODIUM CHLORIDE 0.9% 1,000 ML IV SCH (16:47)
[2018-02-07 17:13] LABS: Glucose,Whole Blood 223 mg/dL (75-99)
[2018-02-07] MEDS: INSULIN ASPART 100 UNIT/ML 1 ML 10 ML VIAL SQ SCH ×2 (17:56→21:06)
[2018-02-07 18:30] LABS: Total Protein, Body Fluid 216.5 mg/dL
[2018-02-07] MEDS: ACETAMINOPHEN TAB 500 MG TAB PO PRN (19:09)
[2018-02-07] MEDS: DIALYSIS (PERITONL) DEX 1.5% 2,000 ML INTRAPERIT SCH ×2 (19:44→23:40)
[2018-02-07 21:06] LABS: Glucose,Whole Blood 233 mg/dL (75-99)
--- NOTE | 2018-02-07 21:33 | ECHOF ---
Referral Reason:chest pain MEASUREMENTS -------- HEIGHT: 167.6 cm WEIGHT: 118.8 kg BP: RVIDd: 2.9 cm (< 3.3) IVSd: 1.5 cm (0.6 - 1.1) LVIDd: 4.5 cm (3.9 - 5.3) LVPWd: 1.4 cm (0.6 - 1.1) EDV(Teich): 92 ml IVSs: 1.9 cm LVIDs: 3.1 cm LVPWs: 1.5 cm %IVS Thck: 27 % ESV(Teich): 38 ml EF(Teich): 59 % %FS: 31 % SV(Teich): 54 ml LA Diam: 3.5 cm (2.7 - 3.8) LVOT Diam: 1.9 cm IVC: 1.9 cm LALs A4C: 5.9 cm LAAs A4C: 26.3 cm LAESV A-L A4C: 100 ml LAESV MOD A4C: 96 ml LALs A2C: 5.3 cm LAAs A2C: 19.0 cm LAESV A-L A2C: 57 ml LAESV MOD A2C: 52 ml LAESV(A-L): 79 ml LAESV Index (A-L): 35.26 ml/m Ao Diam: 3.2 cm (2.0 - 3.7) AV Cusp: 1.5 cm (1.5 - 2.6) MV EXCURSION: 12.495 mm (> 18.000) MV EF SLOPE: 28 mm/s (70 - 150) EPSS: 0.2 cm MV E Sharad: 1.11 m/s MV DecT: 429 ms MV Dec [place]: 2.6 m/s MV A Sharad: 1.37 m/s MV E/A Ratio: 0.81 MV PHT: 124 ms E/E': 21.73 E': 0.05 m/s LVOT Vmax: 1.42 m/s LVOT maxP.08 mmHg LVOT Vmax: 1.44 m/s LVOT Vmean: 1.04 m/s LVOT maxP.27 mmHg LVOT meanP.91 mmHg LVOT Env.Ti: 318 ms LVOT VTI: 33.3 cm AV Vmax: 3.30 m/s AV maxP.65 mmHg DALE Vmax, Pt: 1.2 cm DALE Vmax: 1.2 cm AV Vmax: 3.47 m/s AV Vmean: 2.53 m/s AV maxP.18 mmHg AV meanP.52 mmHg AV Env.Ti: 332 ms AV VTI: 84.1 cm DALE Vmax: 1.2 cm DALE (VTI): 1.1 cm DALE Vmax, Pt: 1.2 cm TR Vmax: 2.05 m/s TR maxP.84 mmHg RAP: 5.00 mmHg RVSP: 21.84 mmHg FINDINGS -------- Sinus rhythm. This was a technically adequate study. The left ventricular size is normal. There is moderate concentric left ventricular hypertrophy. O verall left ventricular systolic function is normal with, an EF between 55 - 60 %. The right ventricle is normal in size. LA is moderately dilated 34-39 ml/m2 The right atrium is normal in size. Aortic valve is trileaflet and is moderately thickened. There is moderate aortic stenosis present. Peak/mean gradient across the Aortic Valve is 48.18mmHg / 28.52mmHg. Mild mitral annular calcification present. Mild mitral regurgitation is present. Mild tricuspid regurgitation present. Right ventricular systolic pressure is normal at < 35 mmHg. Trace/mild (physiologic) pulmonic regurgitation. The aortic root size is normal. Normal inferior vena cava with normal inspiratory collapse consistent with estimated right atrial pre ssure of 5 mmHg. There is no pericardial effusion. CONCLUSIONS -------- 1. Sinus rhythm. 2. This was a technically adequate study. 3. The left ventricular size is normal. 4. There is moderate concentric left ventricular hypertrophy. 5. Overall left ventricular systolic function is normal with, an EF between 55 - 60 %. 6. The right ventricle is normal in size. 7. LA is moderately dilated 34-39 ml/m2 8. The right atrium is normal in size. 9. Aortic valve is trileaflet and is moderately thickened. 10. There is moderate aortic stenosis present. 11. Peak/mean gradient across the Aortic Valve is 48.18mmHg / 28.52mmHg. 12. Mild mitral annular calcification present. 13. Mild mitral regurgitation is present. 14. Mild tricuspid regurgitation present. 15. Right ventricular systolic pressure is normal at < 35 mmHg. 16. Trace/mild (physiologic) pulmonic regurgitation. 17. The aortic root size is normal. 18. Normal inferior vena cava with normal inspiratory collapse consistent with estimated right atrial pressure of 5 mmHg. 19. There is no pericardial effusion. CAUSE ANALYST: Anamaria Valle RDCS
[2018-02-07] MEDS: TRESIBA U INSULIN SQ SCH (23:40)
--- NOTE | 2018-02-08 03:41 | CONS ---
CONSULTATION DATE OF SERVICE: 02/07/2018. REASON FOR CONSULTATION: Peritoneal abscess with peritonitis. HISTORY OF PRESENT ILLNESS: The patient is a 57 -year-old female with past medical history significant for end-stage renal disease on peritoneal dialysis for about a year, in a patient who did not have any evidence of any episodes of peritonitis since she started with a peritoneal dialysis. The patient is coming to the ER at [facility] last night with chief complaints of abdominal pain that had been going on for about 4 days. The pain is mostly across abdominal area, more of a diffuse in nature, has been almost 7/10, and severe. Has felt nauseated with it, but no diarrhea or any constipation. The patient with these symptoms has been evaluated by the ER physician. She did have a CT abdominal and pelvis which did not show any acute abnormality. Her white count was normal and no fever. The patient peritoneal fluid was sent for cell count and cultures, though the fluid looks clean. There was 15 nucleated cells with 55% polynuclear with concern for an 80% eosinophilia with concern for peritonitis peritoneal dialysis associated. She did receive a dose of vancomycin in the peritoneal dialysis and she was started on Rocephin 1 g daily. Infectious Disease was consulted for further recommendations regarding antibiotic therapy. The patient still makes some urine, but not specifically the patient denies significant burning or frequency or any flank pain, though her urine was noticed to be significantly positive with WBC. Cultures currently pending. REVIEW OF SYSTEMS: Constitutional: Positive for weakness, some chills but denies any high-grade fever. Eyes no complaint. ENT no complaint. Respiratory: No complaint. Cardiovascular no complaint. Genitourinary as per HPI. GASTROINTESTINAL: As per HPI. Musculoskeletal no complaint. Integumentary: No complaint. Psychological no complaint. Endocrine no complaint. Neurologic no complaint. PAST MEDICAL HISTORY: End-stage renal disease on peritoneal dialysis, diabetes mellitus, DVT, hyperlipidemia, hypertension, sleep apnea, mitral valve prolapse. PAST SURGICAL HISTORY: , bilateral cataract surgery, right foot fracture repair . SOCIAL HISTORY: No history of smoking, drinking, or drug use. FAMILY HISTORY: No pertinent findings noticed. ALLERGIES: TO LISINOPRIL, METFORMIN AND IODINATED CONTRAST DYE. MEDICATIONS: Include the patient currently on Tylenol, aspirin, Glucotrol, Tums, Coreg, Rocephin 1 g daily, Prozac, Lasix, hydralazine, NovoLog, Narcan, Procardia XL, Nitro-Bid, Protonix. EXAMINATION: Blood pressure is 157/80 with a pulse of 74, temperature 98.3, she is 95% on room air. General description is a middle-aged female lying in bed in no distress. No tachypnea or accessory muscles of respiration use. HEENT: Shows no pallor or scleral icterus. Oral mucosal membranes dry. Neck: Trachea central. No thyromegaly. Lungs unlabored breathing. Clear to auscultation anteriorly. Heart S1, S2 regular rate and rhythm. ABDOMEN: Soft, mildly distended. There was no evidence of any infection at the PD catheter exit site, no organomegaly. EXTREMITIES: No edema of the feet. Skin examination: No rash or mass palpable. Neurological: Patient is awake, alert, oriented times three. Mood and affect normal. LABS: Hemoglobin is 12.8 with white count 10.7 with left shift with a BUN of 50, creatinine 5.70. Troponin slightly elevated. Electrolytes have normal. Peritoneal dialysis fluid with 15 WBCs, 65% PMNs, 19% eosinophils, the urine has been positive and cloudy as mentioned above. DIAGNOSTIC IMPRESSION AND PLAN: 1. Patient presented to the hospital with abdominal pain in a patient who does have a history of end-stage renal disease on peritoneal dialysis, noticed to have elevated PMN in her peritoneal dialysis fluid as well as elevated eosinophils in a patient who does have a slightly elevated white count with left shift likely suspicious for underlying peritonitis. Peritoneal dialysis associated most of them are associated with gram-positive skin corry such as Staph epi and less likely gram-negative infection. 2. Patient who does have significantly positive underlying urinary tract infection from enteric gram-negative not excluded. PLAN: 1. The patient has received a dose of vancomycin in her PD fluid, which should be adequate for the next few days. 2. Rocephin 1 g IV daily. 3. Depending upon her clinical response, results of culture, we will adjust her medications further if needed. Thank you for this consultation. Will follow this patient along with you. MMODL / IJN: [id number] /
[2018-02-08] MEDS: DIALYSIS (PERITONL) DEX 1.5% 2,000 ML INTRAPERIT SCH ×3 (05:20→22:42)
[2018-02-08] MEDS: SODIUM CHLORIDE 0.9% 1,000 ML IV SCH (05:30)
[2018-02-08] MEDS: cefTRIAXone IN SWFI 1,000 MG/10 ML SYRINGE IVP SCH ×2 (06:09→14:46)
[2018-02-08] MEDS: NITROGLYCERIN OINT 1 INCH/GM PACKET TOPICAL SCH ×4 (06:09→23:24)
[2018-02-08 07:11] LABS: Glucose,Whole Blood 294 mg/dL (75-99)
[2018-02-08 07:24] LABS: Appearance,BF Clear; Color,BF Colorless; Nucleated Cells, Body Fluid 2 /uL; RBC, Body Fluid 0 /uL
[2018-02-08] MEDS: PANTOPRAZOLE 40 MG/10 ML VIAL IV SCH (08:17)
[2018-02-08] MEDS: CALCITRIOL 0.25 MCG CAP PO SCH (08:17)
[2018-02-08] MEDS: CARVEDILOL 12.5 MG TAB PO SCH ×2 (08:18→16:31)
[2018-02-08] MEDS: INSULIN ASPART 100 UNIT/ML 1 ML 10 ML VIAL SQ SCH ×4 (08:19→21:30)
[2018-02-08] MEDS: ASPIRIN 325 MG TAB PO SCH (08:19)
[2018-02-08] MEDS: FUROSEMIDE 40 MG TAB PO SCH (08:20)
[2018-02-08] MEDS: FLUoxetine HCL 20 MG CAP PO SCH (08:20)
[2018-02-08] MEDS: hydrALAZINE HCL 25 MG TAB PO SCH ×3 (08:20→21:12)
[2018-02-08] MEDS: CALCIUM CARBONATE 500 MG CHEWABLE PO SCH (08:21)
[2018-02-08 11:19] VITALS: BMI 43.2
--- NOTE | 2018-02-08 11:25 | P.PN ---
Subjective Patient is seen in follow-up for end-stage renal disease. She is maintained on peritoneal dialysis. Patient presented with abdominal pain. She also has a UTI with urine culture positive for gram-negative bacilli. Her initial cell count was 15 and she did receive one intraperitoneal dose of vancomycin and Fortaz. Her cell count today is down to 2. Dialysate fluid is clear. No nausea vomiting or diarrhea. Denies chest pain or shortness of breath. Vital signs are stable. General: The patient appeared well nourished and normally developed. HEENT: Head exam is unremarkable. Neck is without jugular venous distension. LUNGS: Lungs are clear to auscultation and percussion. Breath sounds decreased. HEART: Rate and Rhythm are regular. First and second heart sounds normal. No murmurs, rubs or gallops. ABDOMEN: Abdominal exam reveals normal bowel sounds. Non-tender and non- distended. No evidence of peritonitis. EXTREMITITES: No clubbing, cyanosis, or edema. Objective - Vital Signs Vital signs: Vital Signs Temp 98.0 F 02/08/18 06:00 Pulse 72 02/08/18 06:00 Resp 18 02/08/18 06:00 BP 185/80 02/08/18 06:00 Pulse Ox 95 02/08/18 06:00 Intake & Output 02/07/18 02/08/18 02/08/18 18:59 06:59 18:59 Intake Total 600 Balance 600 Weight 121.5 kg 121.5 kg Intake: Other 600 - Labs CBC & Chem 7: 02/07/18 01:20 02/07/18 01:20 Labs: Abnormal Lab Results - Last 24 Hours (Table) 02/07/18 02/07/18 02/07/18 Range/Units 13:12 17:12 21:03 POC Glucose (mg/dL) 223 H 233 H (75-99) mg/dL Phosphorus (2.5-4.5) mg/dL Troponin I 0.047 H* (0.000-0.034) ng/mL 02/08/18 02/08/18 Range/Units 07:09 07:42 POC Glucose (mg/dL) 294 H (75-99) mg/dL Phosphorus 6.2 H (2.5-4.5) mg/dL Troponin I (0.000-0.034) ng/mL Microbiology - Last 24 Hours (Table) 02/08/18 06:00 Body Fluid Culture - Preliminary Peritoneal Fluid 02/07/18 01:16 Gram Stain - Preliminary Dialysate Body Fluid Culture - Preliminary 02/07/18 01:20 Urine Culture - Preliminary Urine,Voided Gram Neg Bacilli Assessment and Plan Plan: Assessment: #1. End-stage renal disease maintained on peritoneal dialysis. #2. Abdominal pain with elevated PMNs. There is concern for peritonitis. Cell count trending down. #3. Hypertension with chronic kidney disease. Blood pressures on higher side. #4. Insulin-dependent diabetes mellitus. #5. Chronic kidney disease mineral bone disease. #6. UTI. Urine culture positive for gram-negative bacilli maintained on Rocephin. Plan: 2 L exchanges every 6 hours with 1.5% solution while in the hospital. Patient received 1 dose of intraperitoneal vancomycin on February 07. Patient also receiving intraperitoneal Fortaz daily which was also started on February 07. Repeat dialysate cell count, culture and Gram stain tomorrow. Home antihypertensives have been resumed. I will add hydralazine 10 mg every 4 hours as needed for systolic blood pressure greater than 160. Follow-up cultures. Add Renvela with meals. Increase dose of hydralazine to 25 mg 3 times daily.
[2018-02-08 11:32] LABS: Glucose,Whole Blood 247 mg/dL (75-99)
[2018-02-08] MEDS: TRESIBA U INSULIN SQ SCH ×2 (12:08→23:22)
--- NOTE | 2018-02-08 13:58 | P.PN ---
Subjective Progress Note Date: 02/08/18 Mr. Giraldo is a pleasant 57-year-old female past medical history significant for renal failure on peritoneal dialysis, hypertension, diabetes mellitus, dyslipidemia and sleep apnea. Dr. Schafer saw her yesterday in consultation for elevated troponins and it was determined they were secondary to her renal failure since she had no symptoms of angina. An echocardiogram was performed and reveled preserved left ventricular systolic function with ejection fraction 55-60%, moderate concentric left ventricular hypertrophy, moderately dilated left atrium, moderate aortic stenosis with a peak/mean gradient 48.18 mmHg/28.52 mmHg. prior to that she had echocardiogram in September 2017 which revealed a mean gradient of 15.43 mmHg. At home she was on carvedilol 25 mg twice a day and nifedipine 60 mg in the morning. Blood pressures have been fluctuating with systolic as high at 226 on admission. Hydralazine 25 mg TID has been added per nephrology. Blood pressure this afternoon after dialysis 148/78 with heart rate 73. She is currently being treated for urinary tract infection positive for gram-negative bacilli as well as questionable peritonitis. Objective - Vital Signs Vital signs: Vital Signs Temp 98.0 F 02/08/18 06:00 Pulse 73 02/08/18 12:00 Resp 18 02/08/18 06:00 BP 148/78 02/08/18 12:00 Pulse Ox 95 02/08/18 06:00 Intake & Output 02/07/18 02/08/18 02/08/18 18:59 06:59 18:59 Intake Total 600 Balance 600 Weight 121.5 kg 120.5 kg Intake: Other 600 - Exam GENERAL: Well-appearing, well-nourished and in no acute distress. Morbidly obese. NECK: Supple without JVD or thyromegaly. LUNGS: Breath sounds clear to auscultation bilaterally. Respiration equal and unlabored. No wheezes, rales or rhonchi. HEART: Regular rate and rhythm with systolic ejection murmur at the base, no rubs or gallops. S1 and S2 heard. EXTREMITIES: Normal range of motion, no edema. No clubbing or cyanosis. Peripheral pulses intact and strong. - Labs CBC & Chem 7: 02/07/18 01:20 02/07/18 01:20 Labs: Abnormal Lab Results - Last 24 Hours (Table) 0302/07/18 02/07/18 Range/Units 13:12 17:12 21:03 POC Glucose (mg/dL) 223 H 233 H (75-99) mg/dL Phosphorus (2.5-4.5) mg/dL Troponin I 0.047 H* (0.000-0.034) ng/mL 02/08/18 02/08/18 02/08/18 Range/Units 07:09 07:42 11:24 POC Glucose (mg/dL) 294 H 247 H (75-99) mg/dL Phosphorus 6.2 H (2.5-4.5) mg/dL Troponin I (0.000-0.034) ng/mL Microbiology - Last 24 Hours (Table) 02/08/18 06:00 Body Fluid Culture - Preliminary Peritoneal Fluid 02/07/18 01:16 Gram Stain - Preliminary Dialysate Body Fluid Culture - Preliminary 02/07/18 01:20 Urine Culture - Preliminary Urine,Voided Gram Neg Bacilli Assessment and Plan Assessment: ASSESSMENT 1. Mild troponin elevation secondary to renal failure 2. Uncontrolled hypertension, hydralazine has been added by nephrology and Procardia will be increased. 3. Aortic stenosis 4. Diabetes mellitus 5. End-stage renal disease on peritoneal dialysis 6. Currently being treated for urinary tract infection and possible peritonitis. PLAN Stable from a cardiac perspective. Lengthy discussion was had with the patient regarding the need for FABI after she is healthy from infections to further assess aortic valve. She will see Dr. Schafer in 4 weeks. Nurse Practitioner note has been reviewed, I agree with a documented findings and plan of care. Patient was seen and examined.
[2018-02-08] MEDS: ACETAMINOPHEN TAB 500 MG TAB PO PRN (14:45)
--- NOTE | 2018-02-08 15:33 | PN ---
PROGRESS NOTE DATE OF SERVICE: 02/08/2018 REASON FOR FOLLOW UP: 1. Peritonitis, peritoneal dialysis. 2. Possible UTI. INTERVAL HISTORY: The patient is afebrile. Her abdominal pain has improved. Patient denies having any chest pain, shortness of breath or cough and no diarrhea. PHYSICAL EXAMINATION: Blood pressure 148/78, pulse of 73, temperature 98. She is 95% on room air. General description is a middle-aged female, lying in bed in no distress. RESPIRATORY SYSTEM: Unlabored breathing, clear to auscultation anteriorly. HEART: S1, S2. Regular rate and rhythm. ABDOMEN: Soft, mildly tender. No guarding or rigidity. EXTREMITIES: No edema of the feet. LABS: No new labs. Patient did have a repeat peritoneal dialysis with cell count down to 2. Cultures currently pending. DIAGNOSTIC IMPRESSION AND PLAN: 1. Patient admitted to the hospital with abdominal pain, multifactorial, likely peritonitis. If peritoneal abscess is suspected,in view of elevated PMNs to take a dose of vancomycin and along with IV Rocephin. Will continue while waiting for the culture to finalize. 2. Patient with gram-negative urinary tract infection, currently for . Will continue waiting for the culture finalize to determine the term of antibiotics. present at the bedside, their questions were answered. MMODL / IJN: [id number] /
[2018-02-08 17:04] LABS: Glucose,Whole Blood 237 mg/dL (75-99)
[2018-02-08] MEDS: cefTAZidime 1.25 GM in DIALYSIS (PERITONL) DEX 1.5% 2,000 ML INTRAPERIT SCH (17:29)
[2018-02-08 19:19] LABS: Hemoglobin A1C 7.7 % (4.0-6.0)
[2018-02-08 21:23] LABS: Glucose,Whole Blood 275 mg/dL (75-99)
[2018-02-09] MEDS: SODIUM CHLORIDE 0.9% 1,000 ML IV SCH (04:38)
[2018-02-09] MEDS: cefTRIAXone IN SWFI 1,000 MG/10 ML SYRINGE IVP SCH ×2 (05:15→17:34)
[2018-02-09] MEDS: DIALYSIS (PERITONL) DEX 1.5% 2,000 ML INTRAPERIT SCH ×3 (05:15→23:32)
[2018-02-09 07:09] LABS: Glucose,Whole Blood 206 mg/dL (75-99)
[2018-02-09] MEDS: INSULIN ASPART 100 UNIT/ML 1 ML 10 ML VIAL SQ SCH ×4 (07:41→20:35)
[2018-02-09] MEDS: NITROGLYCERIN OINT 1 INCH/GM PACKET TOPICAL SCH ×3 (07:41→17:37)
[2018-02-09 07:43] LABS: Basophils # (A) 0.1 k/uL (0-0.2); Basophils % (A) 1 %; Eosinophils # (A) 0.5 k/uL (0-0.7); Eosinophils % (A) 5 %; HGB 10.2 gm/dL (11.4-16.0); Lymphocytes # (A) 1.4 k/uL (1.0-4.8); Lymphocytes % (A) 14 %; MCV 90.9 fL (80.0-100.0); Mean Platelet Volume 6.9; Monocytes # (A) 0.7 k/uL (0-1.0); Monocytes % (A) 7 %; Neutrophils # (A) 7.3 k/uL (1.3-7.7); Neutrophils % (A) 72 %; Platelet Count 273 k/uL (150-450); RBC 3.41 m/uL (3.80-5.40); RDW 12.7 % (11.5-15.5); WBC 10.1 k/uL (3.8-10.6)
[2018-02-09] MEDS: NIFEdipine XL 90 MG TAB.ER.24 PO SCH (07:44)
[2018-02-09] MEDS: hydrALAZINE HCL 25 MG TAB PO SCH ×3 (07:44→20:35)
[2018-02-09] MEDS: FLUoxetine HCL 20 MG CAP PO SCH (07:45)
[2018-02-09] MEDS: PANTOPRAZOLE 40 MG TABLET PO SCH (07:45)
[2018-02-09] MEDS: FUROSEMIDE 40 MG TAB PO SCH (07:45)
[2018-02-09] MEDS: ASPIRIN 325 MG TAB PO SCH (07:45)
[2018-02-09] MEDS: CARVEDILOL 12.5 MG TAB PO SCH ×2 (07:45→17:35)
--- NOTE | 2018-02-09 07:49 | PN ---
PROGRESS NOTE SUBJECTIVE: A 57-year-old white female who was admitted for peritonitis. Remains on vancomycin. Diagnosed with peritonitis and UTI. CARDIOVASCULAR: S1, S2. LUNGS: Transmitted upper airway sounds. HEMATOLOGIC: Negative Homans. PSYCH: Fair mood and affect. NEUROLOGIC: Alert and orient x3. OPHTHALMOLOGICAL: Pupils equal, round, reactive to light and accommodation. : No suprapubic tenderness. VASCULAR: Normal dorsalis pedis, posterior tibial and radial pulse. HEMATOLOGIC: Negative Homans. ASSESSMENT: 1. Peritonitis, urinary tract infection. Await for cultures still pending. 2. End-stage renal disease. 3. Diabetes mellitus, on insulin. 4. Hypertension. 24 to 48 hours for possible discharge. MMODL / IJN: [id number] /
[2018-02-09 08:19] LABS: Albumin 3.1 g/dL (3.5-5.0); Calcium 9.2 mg/dL (8.4-10.2); Potassium 4.7 mmol/L (3.5-5.1); Total Bilirubin 0.2 mg/dL (0.2-1.3); Total Protein 6.2 g/dL (6.3-8.2)
--- NOTE | 2018-02-09 10:05 | P.PN ---
Subjective Patient is seen in follow-up for end-stage daily. renal disease. She is maintained on peritoneal dialysis. Patient presented with abdominal pain. She also has a UTI with urine culture positive for E. coli. Her initial cell count was 15 with 55% PMNs and she did receive one intraperitoneal dose of vancomycin 02/07. She is also receiving intraperitoneal Fortaz daily. Her cell count today was down to 2 yesterday. Dialysate fluid is clear. No nausea vomiting or diarrhea. Denies chest pain or shortness of breath. Did have some bloating overnight. Vital signs are stable. General: The patient appeared well nourished and normally developed. HEENT: Head exam is unremarkable. Neck is without jugular venous distension. LUNGS: Lungs are clear to auscultation and percussion. Breath sounds decreased. HEART: Rate and Rhythm are regular. First and second heart sounds normal. No murmurs, rubs or gallops. ABDOMEN: Abdominal exam reveals normal bowel sounds. Non-tender and non- distended. No evidence of peritonitis. EXTREMITITES: No clubbing, cyanosis, or edema. Objective - Vital Signs Vital signs: Vital Signs Temp 98 F 02/09/18 07:00 Pulse 68 02/09/18 07:00 Resp 14 02/09/18 07:00 BP 130/70 02/09/18 07:00 Pulse Ox 95 02/09/18 07:00 Intake & Output 02/08/18 02/09/18 02/09/18 18:59 06:59 18:59 Intake Total 477 540 Balance 477 540 Weight 120.5 kg 121.5 kg Intake: Oral 477 540 Other: # Voids 1 2 - Labs CBC & Chem 7: 02/09/18 07:24 02/09/18 07:24 Labs: Abnormal Lab Results - Last 24 Hours (Table) 02/08/18 02/08/18 02/08/18 Range/Units 07:42 11:24 17:01 RBC (3.80-5.40) m/uL Hgb (11.4-16.0) gm/dL Hct (34.0-46.0) % Sodium (137-145) mmol/L Carbon Dioxide (22-30) mmol/L BUN (7-17) mg/dL Creatinine (0.52-1.04) mg/dL Glucose (74-99) mg/dL POC Glucose (mg/dL) 247 H 237 H (75-99) mg/dL Hemoglobin A1c 7.7 H (4.0-6.0) % Alkaline Phosphatase (38-126) U/L Total Protein (6.3-8.2) g/dL Albumin (3.5-5.0) g/dL 02/08/18 02/09/18 02/09/18 Range/Units 21:11 06:51 07:24 RBC 3.41 L (3.80-5.40) m/uL Hgb 10.2 L (11.4-16.0) gm/dL Hct 31.0 L (34.0-46.0) % Sodium (137-145) mmol/L Carbon Dioxide (22-30) mmol/L BUN (7-17) mg/dL Creatinine (0.52-1.04) mg/dL Glucose (74-99) mg/dL POC Glucose (mg/dL) 275 H 206 H (75-99) mg/dL Hemoglobin A1c (4.0-6.0) % Alkaline Phosphatase (38-126) U/L Total Protein (6.3-8.2) g/dL Albumin (3.5-5.0) g/dL 02/09/18 Range/Units 07:24 RBC (3.80-5.40) m/uL Hgb (11.4-16.0) gm/dL Hct (34.0-46.0) % Sodium 136 L (137-145) mmol/L Carbon Dioxide 21 L (22-30) mmol/L BUN 58 H (7-17) mg/dL Creatinine 5.85 H* (0.52-1.04) mg/dL Glucose 222 H (74-99) mg/dL POC Glucose (mg/dL) (75-99) mg/dL Hemoglobin A1c (4.0-6.0) % Alkaline Phosphatase 138 H (38-126) U/L Total Protein 6.2 L (6.3-8.2) g/dL Albumin 3.1 L (3.5-5.0) g/dL Microbiology - Last 24 Hours (Table) 02/07/18 01:20 Urine Culture - Final Urine,Voided Escherichia coli 02/08/18 06:00 Gram Stain - Preliminary Peritoneal Fluid Body Fluid Culture - Preliminary 02/07/18 01:16 Gram Stain - Preliminary Dialysate Body Fluid Culture - Preliminary Assessment and Plan Plan: Assessment: #1. End-stage renal disease maintained on peritoneal dialysis. #2. Abdominal pain with elevated PMNs. There is concern for peritonitis. Cell count trending down. #3. Hypertension with chronic kidney disease. Blood pressures on higher side. #4. Insulin-dependent diabetes mellitus. #5. Chronic kidney disease mineral bone disease. #6. UTI. Urine culture positive for E. coli maintained on Rocephin. Plan: 2 L exchanges every 6 hours with 1.5% solution while in the hospital. Patient received 1 dose of intraperitoneal vancomycin on February 07. Patient also receiving intraperitoneal Fortaz daily which was also started on February 07. Repeat dialysate cell count, culture and Gram stain today. Maintain current anti-hypertensives. Maintain hydralazine 10 mg every 4 hours as needed for systolic blood pressure greater than 160. Follow-up cultures. Maintain Renvela with meals. Stable for discharge from nephrology standpoint. She will finish course of abx outpatient.
[2018-02-09 12:10] LABS: Glucose,Whole Blood 182 mg/dL (75-99)
[2018-02-09] MEDS: CALCIUM CARBONATE 500 MG CHEWABLE PO SCH (12:40)
[2018-02-09] MEDS: TRESIBA U INSULIN SQ SCH ×2 (12:40→23:32)
[2018-02-09] MEDS: CALCITRIOL 0.25 MCG CAP PO SCH (12:40)
[2018-02-09] MEDS: SEVELAMER 800 MG TAB PO SCH ×2 (12:42→17:39)
[2018-02-09 13:42] LABS: Appearance,BF Hazy; Color,BF Colorless
[2018-02-09 14:20] LABS: Nucleated Cells, Body Fluid 2 /uL; RBC, Body Fluid 1 /uL
[2018-02-09] MEDS: ONDANSETRON 4 MG/2 ML VIAL IVP PRN (14:32)
--- NOTE | 2018-02-09 15:47 | P.GSCN ---
History of Present Illness Consult date: 02/09/18 Reason for Consult: Abdominal pain History of present illness: This a 57-year-old female who is admitted to Dr. Sam Liu service. Patient complaints of some abdominal pain nausea. She is worked up found have evidence of UTI. She states her pain is mainly in the suprapubic area. She's had some full liquids today. She's had some minimal nausea. She's had poor oral intake. Past Medical History Past Medical History: Diabetes Mellitus, Deep Vein Thrombosis (DVT), Hyperlipidemia, Hypertension, Renal Disease, Respiratory Disorder, Sleep Apnea/ CPAP/BIPAP Additional Past Medical History / Comment(s): MVP, CALLOUSE RT GREAT TOE History of Any Multi-Drug Resistant Organisms: None Reported Past Surgical History: Section, Orthopedic Surgery Additional Past Surgical History / Comment(s): right foot BROKEN HAS METAL IN PLACE, EAR SX CHILD FOR INFECTION, JESUS CATARACTS Past Anesthesia/Blood Transfusion Reactions: Previous Problems w/ Anesthesia Additional Past Anesthesia/Blood Transfusion Reaction / Comm: W/ NOVACAINE- HAS THROAT SWELLING Past Psychological History: Depression Smoking Status: Never smoker - Past Family History Father Family Medical History: Diabetes Mellitus Mother Family Medical History: Hypertension Additional Family Medical History / Comment(s): Anxiety. Medications and Allergies Home Medications Medication Instructions Recorded Confirmed Type NIFEdipine XL [Procardia XL] 60 mg PO QAM 04/24/14 02/07/18 History Carvedilol 25 mg PO BID 01/22/15 02/07/18 History Calcium Carbonate [Calcium] 600 mg PO DAILY 05/06/15 02/07/18 History Insulin Degludec [Tresiba 90 unit SQ BID 02/10/17 02/07/18 History Flextouch U-100] Acetaminophen [Tylenol] 1,000 mg PO TID PRN 02/07/18 02/07/18 History Calcitriol 0.5 mcg PO MOTUWETHFR 02/07/18 02/07/18 History FLUoxetine HCL [PROzac] 20 mg PO DAILY 02/07/18 02/07/18 History Furosemide [Lasix] 40 mg PO QAM tab 02/09/18 Rx Insulin Aspart [NovoLOG 0 unit SQ ACHS vial 02/09/18 Rx (formulary)] Sevelamer [Renvela] 800 mg PO TID-W/MEALS tab 02/09/18 Rx hydrALAZINE HCL [Apresoline] 25 mg PO TID tab 02/09/18 Rx Allergies Allergy/AdvReac Type Severity Reaction Status Date / Time Iodinated Contrast- Oral and Allergy Unknown Verified 02/07/18 07:37 IV Dye lisinopril Allergy Rash/Hives Verified 02/07/18 07:37 metformin AdvReac Diarrhea Verified 02/07/18 07:37 NOVACAINE Allergy Intermediate Anaphylaxis Uncoded 02/06/18 23:29 Surgical - Exam Vital Signs Temp Pulse Resp BP Pulse Ox 98.6 F 77 16 226/106 98 02/06/18 23:23 02/06/18 23:23 02/06/18 23:23 02/06/18 23:23 02/06/18 23:23 - General well developed, no distress - Eyes PERRL - ENT normal pinna - Neck no masses - Respiratory normal expansion - Cardiovascular Rhythm: regular - Abdomen Abdomen soft. She is morbidly obese BMI 44. There is no rebound tenderness. There is no guarding. There is some mild diffuse tenderness. Results - Labs 02/09/18 07:24 02/09/18 07:24 Abnormal Lab Results - Last 24 Hours (Table) 02/08/18 02/08/18 02/08/18 Range/Units 07:42 17:01 21:11 RBC (3.80-5.40) m/uL Hgb (11.4-16.0) gm/dL Hct (34.0-46.0) % Sodium (137-145) mmol/L Carbon Dioxide (22-30) mmol/L BUN (7-17) mg/dL Creatinine (0.52-1.04) mg/dL Glucose (74-99) mg/dL POC Glucose (mg/dL) 237 H 275 H (75-99) mg/dL Hemoglobin A1c 7.7 H (4.0-6.0) % Alkaline Phosphatase (38-126) U/L Total Protein (6.3-8.2) g/dL Albumin (3.5-5.0) g/dL 02/09/18 02/09/18 02/09/18 Range/Units 06:51 07:24 07:24 RBC 3.41 L (3.80-5.40) m/uL Hgb 10.2 L (11.4-16.0) gm/dL Hct 31.0 L (34.0-46.0) % Sodium 136 L (137-145) mmol/L Carbon Dioxide 21 L (22-30) mmol/L BUN 58 H (7-17) mg/dL Creatinine 5.85 H* (0.52-1.04) mg/dL Glucose 222 H (74-99) mg/dL POC Glucose (mg/dL) 206 H (75-99) mg/dL Hemoglobin A1c (4.0-6.0) % Alkaline Phosphatase 138 H (38-126) U/L Total Protein 6.2 L (6.3-8.2) g/dL Albumin 3.1 L (3.5-5.0) g/dL 02/09/18 Range/Units 11:33 RBC (3.80-5.40) m/uL Hgb (11.4-16.0) gm/dL Hct (34.0-46.0) % Sodium (137-145) mmol/L Carbon Dioxide (22-30) mmol/L BUN (7-17) mg/dL Creatinine (0.52-1.04) mg/dL Glucose (74-99) mg/dL POC Glucose (mg/dL) 182 H (75-99) mg/dL Hemoglobin A1c (4.0-6.0) % Alkaline Phosphatase (38-126) U/L Total Protein (6.3-8.2) g/dL Albumin (3.5-5.0) g/dL Microbiology - Last 24 Hours (Table) 02/07/18 01:16 Gram Stain - Preliminary Dialysate Body Fluid Culture - Preliminary 02/07/18 01:20 Urine Culture - Final Urine,Voided Escherichia coli 02/08/18 06:00 Gram Stain - Preliminary Peritoneal Fluid Body Fluid Culture - Preliminary Diabetes panel 02/08/18 02/09/18 Range/Units 07:42 07:24 Sodium 136 L (137-145) mmol/L Potassium 4.7 (3.5-5.1) mmol/L Chloride 99 (98-107) mmol/L Carbon Dioxide 21 L (22-30) mmol/L BUN 58 H (7-17) mg/dL Creatinine 5.85 H* (0.52-1.04) mg/dL Glucose 222 H (74-99) mg/dL Hemoglobin A1c 7.7 H (4.0-6.0) % Calcium 9.2 (8.4-10.2) mg/dL AST 21 (14-36) U/L ALT 28 (9-52) U/L Alkaline Phosphatase 138 H (38-126) U/L Total Protein 6.2 L (6.3-8.2) g/dL Albumin 3.1 L (3.5-5.0) g/dL Calcium panel 02/09/18 Range/Units 07:24 Calcium 9.2 (8.4-10.2) mg/dL Albumin 3.1 L (3.5-5.0) g/dL Pituitary panel 02/09/18 Range/Units 07:24 Sodium 136 L (137-145) mmol/L Potassium 4.7 (3.5-5.1) mmol/L Chloride 99 (98-107) mmol/L Carbon Dioxide 21 L (22-30) mmol/L BUN 58 H (7-17) mg/dL Creatinine 5.85 H* (0.52-1.04) mg/dL Glucose 222 H (74-99) mg/dL Calcium 9.2 (8.4-10.2) mg/dL Adrenal panel 02/09/18 Range/Units 07:24 Sodium 136 L (137-145) mmol/L Potassium 4.7 (3.5-5.1) mmol/L Chloride 99 (98-107) mmol/L Carbon Dioxide 21 L (22-30) mmol/L BUN 58 H (7-17) mg/dL Creatinine 5.85 H* (0.52-1.04) mg/dL Glucose 222 H (74-99) mg/dL Calcium 9.2 (8.4-10.2) mg/dL Total Bilirubin 0.2 (0.2-1.3) mg/dL AST 21 (14-36) U/L ALT 28 (9-52) U/L Alkaline Phosphatase 138 H (38-126) U/L Total Protein 6.2 L (6.3-8.2) g/dL Albumin 3.1 L (3.5-5.0) g/dL Assessment and Plan Assessment: Probable UTI ileus. Patient's CAT scan was reviewed. There is a lipoma the cecum. Patient will follow-up in the office an outpatient. We'll plan for outpatient endoscopy.
[2018-02-09 17:05] LABS: Glucose,Whole Blood 169 mg/dL (75-99)
[2018-02-09 17:05] LABS: Glucose,Whole Blood 171 mg/dL (75-99)
[2018-02-09] MEDS: cefTAZidime 1.25 GM in DIALYSIS (PERITONL) DEX 1.5% 2,000 ML INTRAPERIT SCH (17:27)
[2018-02-09 20:33] LABS: Glucose,Whole Blood 161 mg/dL (75-99)
--- NOTE | 2018-02-09 22:10 | PN ---
PROGRESS NOTE DATE OF SERVICE: 02/09/2018. REASON FOR FOLLOWUP: 1. Peritonitis, peritoneal dialysis. 2. E. coli urinary tract infection. INTERVAL HISTORY: The patient is afebrile. She is feeling slightly better, still has some abdominal pain, though initial pain has improved. No complaint of pain any more at that point abdominal area. Slight nausea, but no vomiting and no urinary symptoms. EXAMINATION: Blood pressure 128/70 with a pulse of 77, temperature 97.9. She is 96% on room air. General description is a middle-aged female lying in bed in no distress. RESPIRATORY SYSTEM: Unlabored breathing. Clear to auscultation anteriorly. HEART: S1, S2. Regular rate and rhythm. ABDOMEN: Soft. No tenderness. EXTREMITIES: No edema of feet. LABS: PD fluid today. Body fluid culture has been negative. Urine with E. coli. DIAGNOSTIC IMPRESSION AND PLAN: 1. Patient admitted to hospital for abdominal pain with concern for peritoneal dialysis with peritonitis, sepsis and the patient did have overall improvement. White cell count is down to only 192. Culture has been negative. She did receive a dose of vancomycin. Repeat should be done . Continue with Fortaz through dialysis to finish a 10-day course of therapy. 2. Patient with Escherichia coli urinary tract infection, currently on Rocephin, switched to p.o. Cipro for discharge. MMODL / IJN: [id number] /
--- NOTE | 2018-02-09 22:37 | PN ---
PROGRESS NOTE SUBJECTIVE: Wh[id number]old white female admitted with peritonitis, UTI, had epigastric nausea today. Get a consult with Dr. Black for possibly EGD. CARDIOVASCULAR: S1, S2. LUNGS: Clear. GI: Tenderness to palpation, epigastric. No rebound. PSYCH: Fair mood and affect. NEUROLOGIC: Alert and oriented x3. ASSESSMENT: 1. Acute abdominal pain. 2. Gastroesophageal reflux disease. 3. Possibly urinary tract infection. 4. Ileus. She will follow up for an outpatient endoscopy. Possible discharge home on oral proton pump inhibitors, diabetes mellitus control, renal dialysis, etc. MMODL / IJN: [id number] /
[2018-02-10] MEDS: ONDANSETRON 4 MG/2 ML VIAL IVP PRN ×3 (00:04→19:20)
[2018-02-10] MEDS: SODIUM CHLORIDE 0.9% 1,000 ML IV SCH (03:11)
[2018-02-10] MEDS: DIALYSIS (PERITONL) DEX 1.5% 2,000 ML INTRAPERIT SCH ×3 (05:15→23:01)
[2018-02-10] MEDS: cefTRIAXone IN SWFI 1,000 MG/10 ML SYRINGE IVP SCH (05:15)
[2018-02-10 06:56] LABS: Glucose,Whole Blood 155 mg/dL (75-99)
[2018-02-10] MEDS: PANTOPRAZOLE 40 MG TABLET PO SCH (07:31)
[2018-02-10] MEDS: SEVELAMER 800 MG TAB PO SCH ×3 (07:31→17:40)
[2018-02-10] MEDS: INSULIN ASPART 100 UNIT/ML 1 ML 10 ML VIAL SQ SCH ×4 (07:31→21:36)
[2018-02-10] MEDS: NIFEdipine XL 90 MG TAB.ER.24 PO SCH (07:32)
[2018-02-10] MEDS: ASPIRIN 325 MG TAB PO SCH (07:32)
[2018-02-10] MEDS: CARVEDILOL 12.5 MG TAB PO SCH ×2 (07:32→17:40)
[2018-02-10] MEDS: FLUoxetine HCL 20 MG CAP PO SCH (07:32)
[2018-02-10] MEDS: FUROSEMIDE 40 MG TAB PO SCH (07:33)
[2018-02-10] MEDS: hydrALAZINE HCL 25 MG TAB PO SCH ×3 (07:33→23:11)
[2018-02-10 10:43] LABS: Glucose,Whole Blood 171 mg/dL (75-99)
[2018-02-10 11:50] LABS: Glucose,Whole Blood 153 mg/dL (75-99)
--- NOTE | 2018-02-10 12:04 | P.PN ---
Subjective Progress Note Date: 02/10/18 Seen for the follow-up ESRD on peritoneal dialysis. [place] dizzy and lightheaded this morning. No abdominal pain nausea vomiting or diarrhea. Positive orthostatics Objective - Vital Signs Vital signs: Vital Signs Temp 97.3 F L 02/10/18 11:05 Pulse 77 02/10/18 11:39 Resp 16 02/10/18 11:05 BP 134/62 02/10/18 11:39 Pulse Ox 95 02/10/18 11:05 Intake & Output 02/09/18 02/10/18 02/10/18 18:59 06:59 18:59 Intake Total 600 Balance 600 Weight 123.5 kg 123.5 kg Intake: Oral 200 Other 400 Other: # Voids 2 3 - Exam Lying in bed no acute distress s1 S2 heard Abdomen soft bowel sounds present Trace edema - Labs CBC & Chem 7: 02/09/18 07:24 02/09/18 07:24 Labs: Abnormal Lab Results - Last 24 Hours (Table) 02/09/18 02/09/18 02/09/18 Range/Units 11:33 16:46 17:03 POC Glucose (mg/dL) 182 H 169 H 171 H (75-99) mg/dL 02/09/18 02/10/18 02/10/18 Range/Units 20:30 06:45 10:21 POC Glucose (mg/dL) 161 H 155 H 171 H (75-99) mg/dL 02/10/18 Range/Units 11:46 POC Glucose (mg/dL) 153 H (75-99) mg/dL Microbiology - Last 24 Hours (Table) 02/09/18 13:00 Gram Stain - Preliminary Peritoneal Fluid Body Fluid Culture - Preliminary 02/07/18 01:16 Gram Stain - Preliminary Dialysate Body Fluid Culture - Preliminary 02/07/18 01:20 Urine Culture - Final Urine,Voided Escherichia coli 02/08/18 06:00 Gram Stain - Preliminary Peritoneal Fluid Body Fluid Culture - Preliminary Assessment and Plan Assessment: Impression: #1 ESRD on peritoneal dialysis #2 urinary tract infection with culture negative peritonitis #3 positive orthostatics #4 anemia with ESRD #5 metabolic bone disease #6 hypertension with ESRD Recommendations: #1 continue with exchanges CAPD 2 L 1.5% every 6 hours. #2 currently on Fortaz daily. #3 stop Procardia for orthostatics monitor blood pressures closely with the goal of less than 140/90. #4. Stop Ceftriaxone as Fortaz will cover for her urinary tract infection.
[2018-02-10] MEDS: TRESIBA U INSULIN SQ SCH ×2 (12:49→23:09)
[2018-02-10] MEDS: CALCIUM CARBONATE 500 MG CHEWABLE PO SCH (12:53)
--- NOTE | 2018-02-10 14:05 | P.PN ---
Progress Note - Text Progress Note Date: 02/10/18 Patient seen and evaluated. Still reports no passage of flatus. She has gastroparesis. Cannot tolerate Reglan as a result of kidney disease. No surgical intervention. Will follow.
--- NOTE | 2018-02-10 14:35 | PN ---
PROGRESS NOTE SUBJECTIVE: This is a 57-year-old white female admitted with peritonitis, urinary tract infection, acute abdominal pain. Dr. Black for surgery saw her. Will do an outpatient EGD. She is having no chest pain or shortness of breath at this time. Vital signs stable, afebrile. CARDIOVASCULAR: S1, S2. LUNGS: Clear. GI: Soft, mild tenderness to palpation epigastric area, suprapubic area. ASSESSMENT: 1. Peritonitis. 2. Obesity. 3. End-stage renal disease. 4. Urinary tract infection. 5. Hypertension. Continue on IV Rocephin. Possible gentamicin through the IV. Order for Infectious Disease. She has orthostatic hypotension, dizziness today which will prolong her stay in the hospital. She is dizzy with standing up. Please see further orders. MMODL / IJN: [id number] /
[2018-02-10 17:02] LABS: Glucose,Whole Blood 150 mg/dL (75-99)
[2018-02-10] MEDS: cefTAZidime 1.25 GM in DIALYSIS (PERITONL) DEX 1.5% 2,000 ML INTRAPERIT SCH (17:06)
--- NOTE | 2018-02-10 18:54 | P.PN ---
Subjective Progress Note Date: 02/10/18 The patient is a 57-year-old female admitted secondary to ileus and abdominal pain. She reports no passage of flatus. She has gastroparesis and cannot tolerate Reglan as a result of kidney disease. She is tolerating diet. Objective - Vital Signs Vital signs: Vital Signs Temp 97.3 F L 02/10/18 11:05 Pulse 77 02/10/18 11:39 Resp 16 02/10/18 11:05 BP 134/62 02/10/18 11:39 Pulse Ox 95 02/10/18 11:05 Intake & Output 02/09/18 02/10/18 02/10/18 18:59 06:59 18:59 Intake Total 600 Balance 600 Weight 123.5 kg 123.5 kg Intake: Oral 200 Other 400 Other: # Voids 2 3 - Exam GENERAL: Well developed and in no acute distress. Pleasant. HEENT: No sclera icterus. Extraocular movements grossly intact. Moist buccal mucosa. Head is atraumatic, normocephalic. Hears conversational speech. No nasal drainage. NECK: Supple without lymphadenopathy. CHEST: Non-labored respirations and equal bilateral excursions. CARDIOVASCULAR: Regular rate and rhythm. Palpable 2+ radial pulses. ABDOMEN: Soft, nontender. Nondistended. MUSCULOSKELETAL: No clubbing, cyanosis. NEUROLOGIC: No focal or lateralizing signs. PSYCH: Appropriate affect. Alert and oriented to person, place and time. SKIN: Good skin turgor. Well perfused. - Labs CBC & Chem 7: 02/09/18 07:24 02/09/18 07:24 Labs: Abnormal Lab Results - Last 24 Hours (Table) 02/09/18 02/09/18 02/09/18 Range/Units 16:46 17:03 20:30 POC Glucose (mg/dL) 169 H 171 H 161 H (75-99) mg/dL 02/10/18 02/10/18 02/10/18 Range/Units 06:45 10:21 11:46 POC Glucose (mg/dL) 155 H 171 H 153 H (75-99) mg/dL Microbiology - Last 24 Hours (Table) 02/08/18 06:00 Gram Stain - Preliminary Peritoneal Fluid Body Fluid Culture - Preliminary 02/07/18 01:16 Gram Stain - Preliminary Dialysate Body Fluid Culture - Preliminary 02/09/18 13:00 Gram Stain - Preliminary Peritoneal Fluid Body Fluid Culture - Preliminary Assessment and Plan (1) Ileus Current Visit: Yes Status: Acute Code(s): K56.7 - ILEUS, UNSPECIFIED SNOMED Code(s): 699458922 (2) Morbid obesity due to excess calories Current Visit: Yes Status: Acute Code(s): E66.01 - MORBID (SEVERE) OBESITY DUE TO EXCESS CALORIES SNOMED Code(s): 945275221 (3) BMI 40.0-44.9, adult Current Visit: Yes Status: Acute Code(s): Z68.41 - BODY MASS INDEX (BMI) 40.0-44.9, ADULT SNOMED Code(s): 748160877 (4) Abdominal pain Current Visit: Yes Status: Acute Code(s): R10.9 - UNSPECIFIED ABDOMINAL PAIN SNOMED Code(s): 13828228 (5) Acute renal failure Current Visit: No Status: Acute Code(s): N17.9 - ACUTE KIDNEY FAILURE, UNSPECIFIED SNOMED Code(s): 81205516 Plan: 1. She cannot tolerate Reglan as a result of kidney disease. 2. No surgical intervention. 3. Will follow. 4. May benefit from stool softeners
[2018-02-10] MEDS ORDERED: MAGNESIUM HYDROXIDE 2,400 MG/10 ML CUP PO PRN (19:15)
[2018-02-10 20:20] LABS: Glucose,Whole Blood 168 mg/dL (75-99)
[2018-02-10 23:12] LABS: Glucose,Whole Blood 183 mg/dL (75-99)
--- NOTE | 2018-02-10 23:25 | PN ---
PROGRESS NOTE DATE OF SERVICE: 02/10/2018. REASON FOR FOLLOW UP: Peritoneal abscess . E coli UTI. INTERVAL HISTORY: The patient is afebrile. She is feeling better. Breathing comfortably. Abdominal pain has improved. No nausea, vomiting, or any diarrhea. No urinary symptoms. EXAMINATION: Blood pressure 123/60 with a pulse of 75, temperature 96.8. She is 95% on room air. General description is a middle-aged female lying in bed in no distress. Respiratory system: Unlabored breathing. Clear to auscultation anteriorly. Heart S1, S2. Regular rate and rhythm. ABDOMEN: Soft, no tenderness. EXTREMITIES: No edema of the feet. LABS: No new lab has been obtained today. Peritoneal cultures remain to be negative. DIAGNOSTIC IMPRESSION AND PLAN: 1. Patient admitted to the hospital with abdominal pain, multifactorial with possible component of peritonitis, culture negative responding to the vancomycin and Fortaz she is getting in her peritoneal dialysis. The patient will continue for to finish 10 day course of therapy. 2. Patient with E coli urinary tract infection adequately treated. Rocephin can be discontinued. Continue supportive care. MMODL / IJN: [id number] /
[2018-02-11] MEDS: SODIUM CHLORIDE 0.9% 1,000 ML IV SCH (03:02)
[2018-02-11] MEDS: DIALYSIS (PERITONL) DEX 1.5% 2,000 ML INTRAPERIT SCH ×3 (05:37→22:55)
[2018-02-11 07:01] LABS: Glucose,Whole Blood 134 mg/dL (75-99)
[2018-02-11 07:12] LABS: Basophils % (A) 0 %; Eosinophils # (A) 0.4 k/uL (0-0.7); Eosinophils % (A) 4 %; HCT 31.3 % (34.0-46.0); HGB 10.3 gm/dL (11.4-16.0); Lymphocytes # (A) 1.3 k/uL (1.0-4.8); Lymphocytes % (A) 14 %; MCH 29.7 pg (25.0-35.0); MCHC 32.7 g/dL (31.0-37.0); MCV 90.7 fL (80.0-100.0); Mean Platelet Volume 6.9; Monocytes # (A) 0.7 k/uL (0-1.0); Monocytes % (A) 7 %; Neutrophils # (A) 7.3 k/uL (1.3-7.7); Neutrophils % (A) 74 %; Platelet Count 267 k/uL (150-450); RBC 3.45 m/uL (3.80-5.40); RDW 12.8 % (11.5-15.5); WBC 9.9 k/uL (3.8-10.6)
[2018-02-11 07:22] LABS: Potassium 4.2 mmol/L (3.5-5.1)
[2018-02-11] MEDS: INSULIN ASPART 100 UNIT/ML 1 ML 10 ML VIAL SQ SCH ×4 (09:54→22:26)
--- NOTE | 2018-02-11 10:03 | P.PN ---
Subjective Progress Note Date: 02/11/18 Seen for the follow-up ESRD on peritoneal dialysis. Was dizzy yesterday with orthostatics. Was having abdominal bloating last night, No nausea vomiting or diarrhea. Sleepy this morning Objective - Vital Signs Vital signs: Vital Signs Temp 98.1 F 02/11/18 09:56 Pulse 74 02/11/18 09:56 Resp 16 02/11/18 09:56 BP 121/76 02/11/18 09:56 Pulse Ox 96 02/11/18 09:56 Intake & Output 02/10/18 02/11/18 02/11/18 18:59 06:59 18:59 Intake Total 300 220 Balance 300 220 Intake: Oral 220 Other 300 Other: # Voids 2 1 3 - Exam Lying in bed no acute distress s1 S2 heard Abdomen soft bowel sounds present Trace edema PD catheter - Labs CBC & Chem 7: 02/11/18 06:45 02/11/18 06:45 Labs: Abnormal Lab Results - Last 24 Hours (Table) 02/10/18 02/10/18 02/10/18 Range/Units 10:21 11:46 16:40 RBC (3.80-5.40) m/uL Hgb (11.4-16.0) gm/dL Hct (34.0-46.0) % BUN (7-17) mg/dL Creatinine (0.52-1.04) mg/dL Glucose (74-99) mg/dL POC Glucose (mg/dL) 171 H 153 H 150 H (75-99) mg/dL 02/10/18 02/10/18 02/11/18 Range/Units 19:58 23:08 06:45 RBC 3.45 L (3.80-5.40) m/uL Hgb 10.3 L (11.4-16.0) gm/dL Hct 31.3 L (34.0-46.0) % BUN (7-17) mg/dL Creatinine (0.52-1.04) mg/dL Glucose (74-99) mg/dL POC Glucose (mg/dL) 168 H 183 H (75-99) mg/dL 02/11/18 02/11/18 Range/Units 06:45 06:59 RBC (3.80-5.40) m/uL Hgb (11.4-16.0) gm/dL Hct (34.0-46.0) % BUN 65 H (7-17) mg/dL Creatinine 6.98 H* (0.52-1.04) mg/dL Glucose 130 H (74-99) mg/dL POC Glucose (mg/dL) 134 H (75-99) mg/dL Microbiology - Last 24 Hours (Table) 02/08/18 06:00 Gram Stain - Preliminary Peritoneal Fluid Body Fluid Culture - Preliminary 02/07/18 01:16 Gram Stain - Preliminary Dialysate Body Fluid Culture - Preliminary 02/09/18 13:00 Gram Stain - Preliminary Peritoneal Fluid Body Fluid Culture - Preliminary Assessment and Plan Assessment: Impression: #1 ESRD on peritoneal dialysis #2 urinary tract infection and also culture negative peritonitis #3 positive orthostatics #4 anemia with ESRD #5 metabolic bone disease #6 hypertension with ESRD Recommendations: #1 continue with exchanges CAPD 2 L 1.5% every 6 hours. Not much ultrafiltration to cause orthostatics. #2 currently on Fortaz daily. #3 Procardia stopped yesterday for orthostatics. monitor blood pressures closely with the goal of less than 140/90.
[2018-02-11] MEDS: hydrALAZINE HCL 25 MG TAB PO SCH (10:08)
[2018-02-11] MEDS: ASPIRIN 325 MG TAB PO SCH (10:08)
[2018-02-11] MEDS: PANTOPRAZOLE 40 MG TABLET PO SCH (10:09)
[2018-02-11] MEDS: FLUoxetine HCL 20 MG CAP PO SCH (10:09)
[2018-02-11] MEDS: FUROSEMIDE 40 MG TAB PO SCH (10:09)
[2018-02-11] MEDS: CARVEDILOL 12.5 MG TAB PO SCH ×2 (10:09→18:22)
[2018-02-11] MEDS: SEVELAMER 800 MG TAB PO SCH ×3 (10:09→18:22)
[2018-02-11 11:08] LABS: Glucose,Whole Blood 153 mg/dL (75-99)
--- NOTE | 2018-02-11 12:48 | PN ---
PROGRESS NOTE SUBJECTIVE: 57-year-old white female with orthostatic hypotension and dizziness, feels to be somewhat improved today. She remains on empiric antibiotics for UTI. She has severe emesis, vomiting last night, which relieved a lot of her abdominal pain. Surgical treatment is trying to figure out something to give her for gastroparesis. Vital signs stable, afebrile. CARDIOVASCULAR: S1, S2. LUNGS: Clear. GI: Distended abdomen due to obesity. Normal bowel sounds. HEMATOLOGY: Negative Homans. ASSESSMENT: 1. Peritonitis. 2. Orthostatic hypotension. 3. Endstage renal disease. 4. Gastroesophageal reflux disease. 5. Urinary tract infection. Continue current treatments. Possible discharge home if stabilizes from orthostatic changes. Await surgical recommendations for gastroparesis and GERD. Please see further orders. MMODL / IJN: [id number] /
[2018-02-11] MEDS ORDERED: BISACODYL 10 MG SUPP RECTAL STA (13:06)
--- NOTE | 2018-02-11 13:14 | P.PN ---
Subjective Progress Note Date: 02/11/18 The patient is a 57-year-old female admitted secondary to ileus and abdominal pain. Still no passage of flatus. Still no bowel movements. Objective - Vital Signs Vital signs: Vital Signs Temp 98.0 F 02/11/18 11:57 Pulse 78 02/11/18 11:57 Resp 16 02/11/18 11:57 BP 138/74 02/11/18 11:57 Pulse Ox 95 02/11/18 11:57 Intake & Output 02/10/18 02/11/18 02/11/18 18:59 06:59 18:59 Intake Total 300 220 Balance 300 220 Intake: Oral 220 Other 300 Other: Voiding Method Toilet # Voids 2 1 3 - Exam GENERAL: Well developed and in no acute distress. Pleasant. HEENT: No sclera icterus. Extraocular movements grossly intact. Moist buccal mucosa. Head is atraumatic, normocephalic. Hears conversational speech. No nasal drainage. NECK: Supple without lymphadenopathy. CHEST: Non-labored respirations and equal bilateral excursions. CARDIOVASCULAR: Regular rate and rhythm. Palpable 2+ radial pulses. ABDOMEN: Soft, nontender. Nondistended. MUSCULOSKELETAL: No clubbing, cyanosis. NEUROLOGIC: No focal or lateralizing signs. PSYCH: Appropriate affect. Alert and oriented to person, place and time. SKIN: Good skin turgor. Well perfused. - Labs CBC & Chem 7: 02/11/18 06:45 02/11/18 06:45 Labs: Abnormal Lab Results - Last 24 Hours (Table) 02/10/18 02/10/18 02/10/18 Range/Units 16:40 19:58 23:08 RBC (3.80-5.40) m/uL Hgb (11.4-16.0) gm/dL Hct (34.0-46.0) % BUN (7-17) mg/dL Creatinine (0.52-1.04) mg/dL Glucose (74-99) mg/dL POC Glucose (mg/dL) 150 H 168 H 183 H (75-99) mg/dL 02/11/18 02/11/18 02/11/18 Range/Units 06:45 06:45 06:59 RBC 3.45 L (3.80-5.40) m/uL Hgb 10.3 L (11.4-16.0) gm/dL Hct 31.3 L (34.0-46.0) % BUN 65 H (7-17) mg/dL Creatinine 6.98 H* (0.52-1.04) mg/dL Glucose 130 H (74-99) mg/dL POC Glucose (mg/dL) 134 H (75-99) mg/dL 02/11/18 Range/Units 11:06 RBC (3.80-5.40) m/uL Hgb (11.4-16.0) gm/dL Hct (34.0-46.0) % BUN (7-17) mg/dL Creatinine (0.52-1.04) mg/dL Glucose (74-99) mg/dL POC Glucose (mg/dL) 153 H (75-99) mg/dL Microbiology - Last 24 Hours (Table) 02/08/18 06:00 Gram Stain - Preliminary Peritoneal Fluid Body Fluid Culture - Preliminary 02/07/18 01:16 Gram Stain - Final Dialysate Body Fluid Culture - Final 02/09/18 13:00 Gram Stain - Preliminary Peritoneal Fluid Body Fluid Culture - Preliminary Assessment and Plan (1) Ileus Current Visit: Yes Status: Acute Code(s): K56.7 - ILEUS, UNSPECIFIED SNOMED Code(s): 062606766 (2) Morbid obesity due to excess calories Current Visit: Yes Status: Acute Code(s): E66.01 - MORBID (SEVERE) OBESITY DUE TO EXCESS CALORIES SNOMED Code(s): 194118367 (3) BMI 40.0-44.9, adult Current Visit: Yes Status: Acute Code(s): Z68.41 - BODY MASS INDEX (BMI) 40.0-44.9, ADULT SNOMED Code(s): 144336916 (4) Abdominal pain Current Visit: Yes Status: Acute Code(s): R10.9 - UNSPECIFIED ABDOMINAL PAIN SNOMED Code(s): 46243232 (5) Acute renal failure Current Visit: No Status: Acute Code(s): N17.9 - ACUTE KIDNEY FAILURE, UNSPECIFIED SNOMED Code(s): 84891042 (6) Constipation Current Visit: Yes Status: Acute Code(s): K59.00 - CONSTIPATION, UNSPECIFIED SNOMED Code(s): 57452980 Plan: 1. Recommend dulcolax suppository 2. Management of renal failure per nephrology 3. Diet as tolerated
[2018-02-11] MEDS: TRESIBA U INSULIN SQ SCH ×2 (13:17→23:38)
[2018-02-11] MEDS: CALCIUM CARBONATE 500 MG CHEWABLE PO SCH (13:19)
[2018-02-11] MEDS: ONDANSETRON 4 MG/2 ML VIAL IVP PRN (14:46)
[2018-02-11] MEDS ORDERED: METOCLOPRAMIDE 5 MG/ML 2 ML VIAL IVP STA (15:48)
[2018-02-11] MEDS: hydrALAZINE HCL 50 MG TAB PO SCH ×2 (16:52→22:21)
[2018-02-11 17:08] LABS: Glucose,Whole Blood 145 mg/dL (75-99)
[2018-02-11] MEDS: cefTAZidime 1.25 GM in DIALYSIS (PERITONL) DEX 1.5% 2,000 ML INTRAPERIT SCH (17:42)
[2018-02-11 21:03] LABS: Glucose,Whole Blood 157 mg/dL (75-99)
--- NOTE | 2018-02-11 23:15 | PN ---
PROGRESS NOTE DATE OF SERVICE: 02/11/2018. REASON FOR FOLLOWUP: 1. Peritonitis. 2. UTI. INTERVAL HISTORY: The girew6yh is afebrile. She is complaining of feeling dizzy when she stands up. No nausea, no vomiting. No diarrhea. The patient did have constipation with bowel movements when admitted to the hospital. EXAMINATION: Blood pressure 154/75 with a pulse of 74, temperature of 98, she is 95% on room air. General description is a middle aged female lying in bed in no distress. Respiratory system unlabored breathing, clear to auscultation anteriorly. Heart S1, S2. Regular rate and rhythm no tenderness. Extremities, no edema of the feet. LABS: Hemoglobin 10.8, white count 9.9 with a BUN of 65, creatinine 6.98. Peritoneal fluid culture has been negative. DIAGNOSTIC IMPRESSION AND PLAN: 1. Patient with peritonitis. culture has been negative. She is currently on vancomycin and Fortaz should be continued for 10 days. 2. E coli UTI. Rocephin will be discontinued. Family present at bedside. Their questions were answered. MMODL / IJN: [id number] /
[2018-02-12] MEDS: SODIUM CHLORIDE 0.9% 1,000 ML IV SCH (04:28)
[2018-02-12] MEDS: DIALYSIS (PERITONL) DEX 1.5% 2,000 ML INTRAPERIT SCH ×2 (07:14→12:21)
[2018-02-12] MEDS: INSULIN ASPART 100 UNIT/ML 1 ML 10 ML VIAL SQ SCH ×3 (07:25→17:31)
[2018-02-12] MEDS: CARVEDILOL 12.5 MG TAB PO SCH ×2 (07:25→17:31)
[2018-02-12] MEDS: SEVELAMER 800 MG TAB PO SCH ×3 (07:26→17:31)
[2018-02-12] MEDS: PANTOPRAZOLE 40 MG TABLET PO SCH (07:26)
[2018-02-12] MEDS: hydrALAZINE HCL 50 MG TAB PO SCH ×2 (07:27→17:32)
[2018-02-12] MEDS: FUROSEMIDE 40 MG TAB PO SCH (07:27)
[2018-02-12] MEDS: FLUoxetine HCL 20 MG CAP PO SCH (07:27)
[2018-02-12] MEDS: ASPIRIN 325 MG TAB PO SCH (07:27)
[2018-02-12 07:46] LABS: Glucose,Whole Blood 69 mg/dL (75-99)
[2018-02-12 07:46] LABS: Glucose,Whole Blood 72 mg/dL (75-99)
--- NOTE | 2018-02-12 09:33 | P.PN ---
Subjective Patient is seen in follow-up for end-stage renal disease. She is maintained on peritoneal dialysis. Patient presented with abdominal pain. She also has a UTI with urine culture positive for E. coli. Her initial cell count was 15 with 55% PMNs and she did receive one intraperitoneal dose of vancomycin 02/07. She is also receiving intraperitoneal Fortaz daily. Her cell count came down to 2. Dialysate fluid is clear. No nausea vomiting or diarrhea. Denies chest pain or shortness of breath. No active complaints at this time. Vital signs are stable. General: The patient appeared well nourished and normally developed. HEENT: Head exam is unremarkable. Neck is without jugular venous distension. LUNGS: Lungs are clear to auscultation and percussion. Breath sounds decreased. HEART: Rate and Rhythm are regular. First and second heart sounds normal. No murmurs, rubs or gallops. ABDOMEN: Abdominal exam reveals normal bowel sounds. Non-tender and non- distended. No evidence of peritonitis. EXTREMITITES: No clubbing, cyanosis, or edema. Objective - Vital Signs Vital signs: Vital Signs Temp 98.0 F 02/12/18 07:21 Pulse 74 02/12/18 08:06 Resp 14 02/12/18 08:06 BP 120/79 02/12/18 08:06 Pulse Ox 97 02/12/18 08:06 Intake & Output 02/11/18 02/12/18 02/12/18 18:59 06:59 18:59 Intake Total 400 1620 Output Total 100 Balance 300 1620 Intake: Oral 400 1620 Output: Emesis 100 Other: Voiding Method Toilet Toilet # Voids 1 2 # Bowel Movements 1 1 # Emeses 2 - Labs CBC & Chem 7: 02/11/18 06:45 02/11/18 06:45 Labs: Abnormal Lab Results - Last 24 Hours (Table) 02/11/18 02/11/18 02/11/18 Range/Units 11:06 17:05 20:51 POC Glucose (mg/dL) 153 H 145 H 157 H (75-99) mg/dL 02/12/18 02/12/18 Range/Units 07:12 07:31 POC Glucose (mg/dL) 69 L 72 L (75-99) mg/dL Microbiology - Last 24 Hours (Table) 02/09/18 13:00 Gram Stain - Preliminary Peritoneal Fluid Body Fluid Culture - Preliminary 02/08/18 06:00 Gram Stain - Preliminary Peritoneal Fluid Body Fluid Culture - Preliminary 02/07/18 01:16 Gram Stain - Final Dialysate Body Fluid Culture - Final Assessment and Plan Plan: Assessment: #1. End-stage renal disease maintained on peritoneal dialysis. #2. Abdominal pain with elevated PMNs. There is concern for peritonitis. Cell count trending down. #3. Hypertension with chronic kidney disease. Controlled. #4. Insulin-dependent diabetes mellitus. #5. Chronic kidney disease mineral bone disease. #6. UTI. Urine culture positive for E. coli. Plan: 2 L exchanges every 6 hours with 1.5% solution while in the hospital. Patient received 1 dose of intraperitoneal vancomycin on February 07. Patient also receiving intraperitoneal Fortaz daily which was also started on February 07. Maintain current anti-hypertensives. Maintain hydralazine 10 mg every 4 hours as needed for systolic blood pressure greater than 160. Follow-up cultures. Maintain Renvela with meals. Stable for discharge from nephrology standpoint. She will finish course of abx outpatient.
--- NOTE | 2018-02-12 09:42 | PN ---
PROGRESS NOTE Ambreen is lying comfortably in bed. She has no chest discomfort, no dizziness, lightheadedness and no abdominal pain. She is being treated for UTI and possible peritonitis. She says her abdominal discomfort has improved significantly. She does not appear to be in any respiratory distress. PHYSICAL EXAMINATION: On examination,her blood pressure is 120/79 mmHg. The last several readings have been better controlled than before. She is afebrile 98 degrees Fahrenheit, pulse rate in the 70s. Head and neck examination normal. Heart sounds reveal a murmur of aortic stenosis. Abdomen is soft. Lungs are clear. Extremities are warm, no edema. IMPRESSION: 1. Uncontrolled hypertension on medical treatment at this time and blood pressure is better controlled. 2. Aortic stenosis, awaiting workup as an outpatient with Dr. Schafer. 3. Type 2 diabetes. 4. End-stage renal disease on peritoneal dialysis. Currently, patient has been treated for UTI and possible peritonitis. Her troponin elevation was considered to be secondary to renal failure. She will undergo further workup with Dr. Schafer as an outpatient for cardiac stent. She looks comfortable. From a cardiac standpoint, she may also be discharged home when deemed appropriate by the medical team and follow up with Dr. Schafer as an outpatient. MMODL / IJN: [id number] /
--- NOTE | 2018-02-12 10:45 | P.PN ---
Subjective Progress Note Date: 02/12/18 57-year-old seen at bedside. Patient reports the dizziness lightheadedness has resolved. Denies any chest pain or shortness of breath. Also reports abdominal pain is improved. Tolerating diet. No nausea no vomiting Patient was admitted secondary to an ileus and abdominal pain. States had 2 bowel movements last night Patient has end-stage renal disease maintained on peritoneal dialysis. Patients being treated this admission for a UTI with urine culture positive for E. coli Objective - Vital Signs Vital signs: Vital Signs Temp 98.0 F 02/12/18 07:21 Pulse 74 02/12/18 08:06 Resp 14 02/12/18 08:06 BP 120/79 02/12/18 08:06 Pulse Ox 97 02/12/18 08:06 Intake & Output 02/11/18 02/12/18 02/12/18 18:59 06:59 18:59 Intake Total 400 1620 Output Total 100 Balance 300 1620 Intake: Oral 400 1620 Output: Emesis 100 Other: Voiding Method Toilet Toilet # Voids 1 2 # Bowel Movements 1 1 # Emeses 2 - Exam Physical exam Pleasant 57-year-old female sitting up in bed. No new events. Denies dizziness lightheadedness and tolerating a diet with no nausea vomiting Lungs adequate air movement bilaterally no shortness of breath Heart S1-S2 audible regular Abdomen soft no facial grimacing with palpitation to the abdominal wall reports no nausea vomiting bowel tones present nondistended nontender Extremities no edema noted - Labs CBC & Chem 7: 02/11/18 06:45 02/11/18 06:45 Labs: Abnormal Lab Results - Last 24 Hours (Table) 02/11/18 02/11/18 02/11/18 Range/Units 11:06 17:05 20:51 POC Glucose (mg/dL) 153 H 145 H 157 H (75-99) mg/dL 02/12/18 02/12/18 Range/Units 07:12 07:31 POC Glucose (mg/dL) 69 L 72 L (75-99) mg/dL Microbiology - Last 24 Hours (Table) 02/09/18 13:00 Gram Stain - Preliminary Peritoneal Fluid Body Fluid Culture - Preliminary 02/08/18 06:00 Gram Stain - Preliminary Peritoneal Fluid Body Fluid Culture - Preliminary 02/07/18 01:16 Gram Stain - Final Dialysate Body Fluid Culture - Final Assessment and Plan Assessment: Impression End-stage renal disease maintained on peritoneal dialysis Hypertension with chronic kidney disease controlled Chronic kidney disease and mineral bone disease Present on admission UTI with positive urine culture E. coli Present on admission ileus resolved Morbid obesity due to excess calories BMI 43 Constipation chronic Plan Management for renal disease by nephrology defer to Diet as tolerated Milk of magnesia when necessary for constipation Will follow with you No evidence of an acute surgical abdomen at this time Progress note dictated for dr benton The above impression and plan of care have been discussed and directed by signing physician. Mercy Padilla nurse practitioner acting as scribe for signing physician.
[2018-02-12 11:45] LABS: Glucose,Whole Blood 149 mg/dL (75-99)
[2018-02-12] MEDS: TRESIBA U INSULIN SQ SCH (12:19)
[2018-02-12] MEDS: CALCITRIOL 0.25 MCG CAP PO SCH (12:19)
[2018-02-12] MEDS: CALCIUM CARBONATE 500 MG CHEWABLE PO SCH (12:19)
--- NOTE | 2018-02-12 15:22 | PN ---
PROGRESS NOTE DATE OF SERVICE: 02/12/2018 REASON FOR FOLLOWUP VISIT: 1. E coli UTI. 2. Peritonitis. INTERVAL HISTORY: The patient is afebrile. She is breathing comfortably. Denies having any chest pain, shortness of breath or cough. Abdominal pain has improved. No nausea, vomiting. No diarrhea. PHYSICAL EXAMINATION: Blood pressure 157/73, pulse of 70, temperature 97.8, she is 97% on room air. General description is a middle-aged female, lying in bed, in no distress. RESPIRATORY SYSTEM: Unlabored breathing, clear to auscultation anteriorly. HEART: S1, S2. Regular rate and rhythm. ABDOMEN: Soft, no tenderness. EXTREMITIES: No edema of the feet. LABS: No new labs have been obtained today. Sputum has been negative. DIAGNOSTIC IMPRESSION AND PLAN: 1. Patient with Escherichia coli urinary tract infection, adequately treated. 2. Patient with peritonitis culture negative. She will finish therapy with vancomycin and the peritoneal fluid for about a total of 10 days being arranged by the Nephrology. Continue supportive care. MMODL / IJN: [id number] /
[2018-02-12] MEDS: cefTAZidime 1.25 GM in DIALYSIS (PERITONL) DEX 1.5% 2,000 ML INTRAPERIT SCH (17:26)
[2018-02-12 17:28] LABS: Glucose,Whole Blood 131 mg/dL (75-99)
[2018-02-12 18:00] VITALS: PULSE 72; TEMP 97.8
[2018-02-12 18:03] VITALS: BP 156/74; RESP 14
--- NOTE | 2018-02-14 17:01 | CDI ---
Documentation Clarification Form Date: 02/14/18 CDS/[employer] Name: Erika King Malka Hester, Appraiser Auditor between 8:30 am & 5 pm M-F Admit Date: 02/09/18 Discharge Date: 02/12/18 MR#: [id number] Name: Ambreen Giraldo ATTENTION: The Clinical Documentation Specialists (CDI) and [facility] Coding Staff appreciate your assistance in clarifying documentation. Please respond to the clarification below the line at the bottom and electronically sign. The CDI & [facility] Coding staff will review the response and follow-up if needed. Please note: Queries are made part of the Legal Health Record. If you have any questions, please contact the author of this message via ITS. Dr. Bandar Schafer Uncontrolled hypertension was documented IN the H&P, Consult by Dr Willy Schafer, PN by Neal Cleveland & 02/[address] Corey Francis. History/Risk Factors: ESRD w Htn, peritoneal dialysis peritonitis, UTI Clinical Indicators: Unspecified B/P: 226/106, 180/90, 220/124, 170/86, 204/88, 179/82, 172/80, 167/ 80 Treatment: Procardia 60 mg po QAM, Carvedilol 25 mg po bid, Hydralzaine 25 mg po BID, Hydralazine 10 mg IVP Q4hr prn In order to capture the severity of condition, please document and specify the appropriate condition: Hypertensive Emergency Hypertensive Urgency Essential Hypertension Other Condition, please specify Unable to determine Diagnosis Clinical Indicators Hypertensive Urgency SBP > 180 or DBP > 120 without symptoms or with headache Hypertensive Emergency SBP > 180 or DBP > 120 with chest pain or end organ damage Hypertensive encephalopathy, retinal hemorrhages, papilledema, JACQUE Please document in your progress notes and discharge summary in order to capture severity of illness and risk of mortality. Include clinical findings that support your diagnosis. MTDD
--- NOTE | 2018-02-23 14:21 | CDI ---
Documentation Clarification Form Date: 02/23/18 CDS/Orthotic/Prosthetic Clinician Name: Erika King Malka Hester, Triage Rn between 8:30 am & 5 pm M-F Admit Date: 02/09/18 Discharge Date: 02/12/18 MR#: [id number] ATTENTION: The Clinical Documentation Specialists (CDI) and [facility] Coding Staff appreciate your assistance in clarifying documentation. Please respond to the clarification below the line at the bottom and electronically sign. The CDI & [facility] Coding staff will review the response and follow-up if needed. Please note: Queries are made part of the Legal Health Record. If you have any questions, please contact the author of this message via ITS. Dr. Bandar Schafer Uncontrolled hypertension was documented IN the H&P, Consult by Dr Willy Schafer, PN by Neal Cleveland & 02/[address] Corey Francis. History/Risk Factors: ESRD w Htn, peritoneal dialysis peritonitis, UTI Clinical Indicators: Unspecified B/P: 226/106, 180/90, 220/124, 170/86, 204/88, 179/82, 172/80, 167/ 80 Treatment: Procardia 60 mg po QAM, Carvedilol 25 mg po bid, Hydralzaine 25 mg po BID, Hydralazine 10 mg IVP Q4hr prn In order to capture the severity of condition, please document and specify the appropriate condition: Hypertensive Emergency Hypertensive Urgency Essential Hypertension Other Condition, please specify Unable to determine Diagnosis Clinical Indicators Hypertensive Urgency SBP > 180 or DBP > 120 without symptoms or with headache Hypertensive Emergency SBP > 180 or DBP > 120 with chest pain or end organ damage Hypertensive encephalopathy, retinal hemorrhages, papilledema, JACQUE Please document in your progress notes and discharge summary in order to capture severity of illness and risk of mortality. Include clinical findings that support your diagnosis. HTN emergency MTDD
== END 2018-02-12 19:08 | disposition home or self-care (01) | DRG 919 ==
LOC: EC 23:05 → 6SEL 02-07 02:36 → 4MS4W 02-07 12:04 → 3SUR 02-07 12:19 → OBSVTOIN 02-09 09:10
PROVIDERS: ADMIT Family Medicine; ATTEND Family Medicine
PROC: 3E1M39Z Irrigation of Peritoneal Cavity using Dialysate, Percutaneous Approach (ICD-10-PCS; principal; 2018-02-07)
DX: T85.71XA Infection and inflammatory reaction due to peritoneal dialysis catheter, initial encounter (principal); N18.6 End stage renal disease; K65.8 Other peritonitis; Z76.82 Awaiting organ transplant status; N17.9 Acute kidney failure, unspecified; E11.22 Type 2 diabetes mellitus with diabetic chronic kidney disease; E88.89 Other specified metabolic disorders; I12.0 Hypertensive chronic kidney disease with stage 5 chronic kidney disease or end stage renal disease; K56.7 Ileus, unspecified; Z68.41 Body mass index [BMI] 40.0-44.9, adult; N39.0 Urinary tract infection, site not specified; I16.1 Hypertensive emergency; K31.84 Gastroparesis; E11.43 Type 2 diabetes mellitus with diabetic autonomic (poly)neuropathy; E66.01 Morbid (severe) obesity due to excess calories; D63.1 Anemia in chronic kidney disease; B96.20 Unspecified Escherichia coli [E. coli] as the cause of diseases classified elsewhere; I08.0 Rheumatic disorders of both mitral and aortic valves; I95.1 Orthostatic hypotension; G47.30 Sleep apnea, unspecified; E78.5 Hyperlipidemia, unspecified; F32.9 Major depressive disorder, single episode, unspecified; K21.9 Gastro-esophageal reflux disease without esophagitis; K59.00 Constipation, unspecified; D17.5 Benign lipomatous neoplasm of intra-abdominal organs; Z99.2 Dependence on renal dialysis; Z79.4 Long term (current) use of insulin; Z79.899 Other long term (current) drug therapy; Z71.3 Dietary counseling and surveillance; Z88.8 Allergy status to other drugs, medicaments and biological substances; Z88.4 Allergy status to anesthetic agent; Z91.041 Radiographic dye allergy status; Z86.718 Personal history of other venous thrombosis and embolism; Z87.81 Personal history of (healed) traumatic fracture; Z98.42 Cataract extraction status, left eye; Z98.41 Cataract extraction status, right eye; Y84.1 Kidney dialysis as the cause of abnormal reaction of the patient, or of later complication, without mention of misadventure at the time of the procedure; Y92.009 Unspecified place in unspecified non-institutional (private) residence as the place of occurrence of the external cause; Z82.49 Family history of ischemic heart disease and other diseases of the circulatory system; Z83.3 Family history of diabetes mellitus; Z81.8 Family history of other mental and behavioral disorders
CPT/HCPCS: 36415; 74176; 80048; 80053; 81001; 82042; 82150; 82550; 82553; 82945; 83036; 83615; 83690; 84100; 84157; 84484; 85025; 85610; 85730; 87070; 87077; 87086; 87186; 87205; 89050; 93005; 93306; 96374; 96375; 96376; 99285

== ENCOUNTER → 2018-03-05 | Outpatient (CLI) | payer BC ==
--- NOTE | 2018-03-05 14:53 | XR ---
Right hip HISTORY: Pain 2 views of the right hip, correlation CT abdomen pelvis 01/30/2018 There are dense vascular calcifications present. Bone mineralization may be slightly decreased. Align ment is maintained. There is no fracture or dislocation. IMPRESSION: Osteopenia. Findings compatible with renal failure.
== END | disposition home or self-care (01) ==
LOC: RADXRMAIN 14:09
PROVIDERS: ATTEND Family Medicine
DX: M85.851 Other specified disorders of bone density and structure, right thigh (principal)
CPT/HCPCS: 73502

== ENCOUNTER → 2018-03-13 | Day surgery (SDC) | payer BC ==
[2018-03-09 16:20] VITALS: BMI 43.5
[~2018-03-13] MED LIST changes: +BENZOCAINE SPRAY 1 CAN MUCOUS MEM ONE; +MIDAZOLAM 2 MG/2 ML VIAL IV ONE; +MIDAZOLAM 2 MG/2 ML VIAL ONE; -REGADENOSON 0.4 MG/5 ML SYRINGE IV ONE; +SODIUM CHLORIDE 0.9% 1,000 ML IV SCH; +SODIUM CHLORIDE 0.9% 250 ML IV ONE; +fentaNYL (PF) 50 MCG/ML 2 ML AMP ONE
[2018-03-13 08:00] LABS: Glucose,Whole Blood 133 mg/dL (75-99)
[2018-03-13 09:04] VITALS: RESP 16
--- NOTE | 2018-03-13 09:39 | ECHOT ---
TRANSESOPHAGEAL ECHOCARDIOGRAM INDICATION: Aortic stenosis. After obtaining informed consent, transesophageal echocardiogram was performed in left lateral position using an Omni plane probe. Local and IV sedation were obtained using Xylocaine spray and 3 mg of Versed. Patient tolerated the procedure well without any obvious immediate complications. Patient received moderate conscious sedation. Total sedation time was 15 minutes. FINDINGS: 1. AORTIC VALVE: Aortic valve is a 3 leaflet valve, heavily calcified with moderate restriction in leaflet mobility. By planimetry, the valve area is 1.5 cm. There is trace aortic regurgitation noted. 2. Ascending aorta is not aneurysmally dilated. 3. Mitral valve appears anatomically normal. There is moderate mitral regurgitation noted. Tricuspid valve appears normal. 4. INTERATRIAL SEPTUM: There is evidence of nbua-ru-amlly shunt by color-flow Doppler suggestive of a small atrial septal defect. There is no evidence of gmpcx-wk-pbnp shunt. 5. Left ventricle has normal size and systolic function. 6. There is no evidence of intracardiac thrombus within the left atrium, right atrium, right ventricle, left ventricle or left atrial appendage. 7. Left ventricle has normal size and systolic function. CONCLUSIONS: 1. Moderate aortic stenosis with a valve area of 1.5 cm2 by planimetry. 2. Moderate mitral regurgitation. 3. Evidence of atrial septal defect with iqyl-ye-jtuup shunt. There is no evidence of jlywf-dc-vyam shunt by agitated saline contrast study. MMODL / IJN: [id number] /
[2018-03-13 10:15] VITALS: TEMP 98
[2018-03-13 10:44] VITALS: BP 160/62; PULSE 70
== END ==
LOC: CATHCVL 07:24
PROVIDERS: ATTEND Internal Medicine Cardiovascular Disease
DX: I08.0 Rheumatic disorders of both mitral and aortic valves (principal); I12.0 Hypertensive chronic kidney disease with stage 5 chronic kidney disease or end stage renal disease; E11.22 Type 2 diabetes mellitus with diabetic chronic kidney disease; N18.6 End stage renal disease; Z82.49 Family history of ischemic heart disease and other diseases of the circulatory system; Z79.4 Long term (current) use of insulin; Z79.899 Other long term (current) drug therapy; Z88.4 Allergy status to anesthetic agent; Z88.8 Allergy status to other drugs, medicaments and biological substances
CPT/HCPCS: 93312; 93320; 93325; J2250